=== PATIENT | female | born 1970 | race Caucasian/White ===

== ENCOUNTER → 2020-10-05 13:50 | Outpatient (BNVA) | payer OTHER, SELFPAY | PROVIDERS: PCP Nurse Practitioner Adult Health; Visit Provider Surgery | DX: Z76.89 Persons encountering health services in other specified circumstances (principal) ==

== ENCOUNTER → 2020-10-07 08:09 | Outpatient (BNVA) | payer OTHER, SELFPAY | PROVIDERS: PCP Nurse Practitioner Adult Health; Referring Provider Nurse Practitioner Adult Health; Visit Provider Surgery | DX: Z76.89 Persons encountering health services in other specified circumstances (principal) ==

== ENCOUNTER 2020-10-14 08:00 | Outpatient (REF) | payer OTHER, SELFPAY ==
[2020-10-15 15:01] LABS: H Pylori Breath Test NOT DETECTED (NOT DETECTED)
== END 2020-10-14 08:01 | disposition home or self-care (01) ==
LOC: HO.LAB 08:00
PROVIDERS: Visit Provider Physician Assistant
DX: E66.01 Morbid (severe) obesity due to excess calories (principal); R73.03 Prediabetes
CPT/HCPCS: 83013

== ENCOUNTER → 2020-10-14 08:43 | Outpatient (BNVA) | payer OTHER, SELFPAY | PROVIDERS: PCP Nurse Practitioner Adult Health; Visit Provider Physician Assistant | DX: Z76.89 Persons encountering health services in other specified circumstances (principal) ==

== ENCOUNTER 2020-10-17 08:56 | Outpatient (REF) | payer OTHER, SELFPAY ==
--- NOTE | 2020-10-17 09:21 | ECG_ITS ---
Test Reason : MORBIDLY OBESE Blood Pressure : / mmHG Vent. Rate : 079 BPM Atrial Rate : 079 BPM P-R Int : 108 ms QRS Dur : 084 ms QT Int : 396 ms P-R-T Axes : -19 007 010 degrees QTc Int : 454 ms Sinus rhythm with short OR Nonspecific ST abnormality Inferior leads Abnormal ECG No previous ECGs available Referred By: Hai Paul Electronically Signed By:MIMI OBREGON MD
--- NOTE | 2020-10-17 09:33 | XR_ITS ---
EXAMINATION: XR CHEST CLINICAL INFORMATION: Morbid obesity due to excessive calories. COMPARISON: None TECHNIQUE: 2 views of the chest were obtained. FINDINGS: No significant abnormality is noted involving the heart, lungs, mediastinum, bony thorax or soft tissues. XR/XR chest 2V IMPRESSION: Unremarkable chest examination.
[2020-10-17 10:28] LABS: MANUAL DIFF FLAG NO
[2020-10-17 10:44] LABS: Basophils Percent Auto 0.4 % (0-2); Eosinophils Percent Auto 0.9 % (0-4); Hematocrit 40.7 % (37-47); Hemoglobin 13.1 g/dl (12.0-16.0); Imm Gran Abs Auto 0.01 X10*3/uL (0.00-0.03); Imm Gran Pct Auto 0.2 % (0.0-0.4); Lymphocytes Absolute Auto 1.3 X10*3/uL (1.2-4.9); Lymphocytes Percent Auto 27.9 % (20-40); Mean Corpuscular HGB Conc 32.2 g/dl (31.0-35.0); Mean Corpuscular Hemoglobin 27.3 pg (27.0-33.0); Mean Corpuscular Volume 84.8 fL (80-98); Mean Platelet Volume 11.1 fL (9.4-12.3); Monocytes Absolute Auto 0.3 X10*3/uL (0.1-1.2); Monocytes Percent Auto 7.4 % (2-11); Neutrophils Absolute Auto 2.9 X10*3/uL (2.0-8.3); Neutrophils Percent Auto 63.2 % (45-73); Platelet Count 298 X10*3/uL (160-400); Red Cell Distribution Width 13.2 % (11.0-16.0); White Blood Count 4.6 X10*3/uL (4.8-10.8)
[2020-10-17 10:55] LABS: Estimated Average Glucose 111 mg/dL; Hemoglobin A1c % 5.5 %
[2020-10-17 11:09] LABS: Alanine Aminotransferase 22 U/L (0-31); Albumin Level 4.1 g/dL (3.5-5.0); Alkaline Phosphatase 43 U/L (39-117); Anion Gap 15 (12-20); Aspartate Amino Transferase 18 U/L (5-31); Bilirubin Total 0.4 mg/dL (0.0-1.0); Blood Urea Nitrogen 13 mg/dL (9-16); C Reactive Protein 0.19 mg/dL (< or = 0.50); Calcium 9.1 mg/dL (8.4-10.2); Carbon Dioxide 21 mmol/L (22-29); Chloride 106 mmol/L (96-108); Cholesterol 140 mg/dL; Estimated Glomerular Filt Rate > 60; Glucose Random 102 mg/dL (60-115); HDL Cholesterol 45 mg/dL; LDL Cholesterol Calculated 84 mg/dl; Potassium 3.8 mmol/l (3.3-5.1); Sodium 138 mmol/L (135-145); Total Protein 7.1 g/dL (6.5-8.0); Triglycerides 56 mg/dL
[2020-10-17 11:16] LABS: Ferritin 55 ng/mL (10-250); TSH reflex Free T4 1.37 mIU/mL (0.32-4.0); Vitamin D 25-OH Total 22.9 ng/mL (>30)
[2020-10-17 11:32] LABS: Folate 15.9 ng/mL (> or = 4.0); Vitamin B12 691 pg/mL (200-900)
[2020-10-18 15:07] LABS: Calcium (PTHI) 9.2 mg/dL (8.6-10.2); PTHI 36 pg/mL (14-64)
[2020-10-18 23:17] LABS: Insulin Level Total 12.9 uIU/mL
[2020-10-21 18:01] LABS: Zinc 75 mcg/dL (60-130)
[2020-10-23 12:57] LABS: Vitamin B1 <6 nmol/L (8-30)
[2020-10-24 20:09] LABS: Vitamin A 28 mcg/dL (38-98)
== END 2020-10-17 08:57 | disposition home or self-care (01) ==
LOC: HO.LAB 08:56
PROVIDERS: PCP Nurse Practitioner Adult Health; Visit Provider Surgery
DX: E66.01 Morbid (severe) obesity due to excess calories (principal); R73.03 Prediabetes
CPT/HCPCS: 36415; 71046; 80053; 80061; 82306; 82607; 82728; 82746; 83036; 83525; 83970; 84425; 84443; 84590; 84630; 85025; 86140; 93005

== ENCOUNTER → 2020-10-31 08:01 | Outpatient (BNVA) | payer OTHER, SELFPAY | PROVIDERS: PCP Nurse Practitioner Adult Health; Referring Provider Nurse Practitioner Adult Health; Visit Provider Surgery | DX: Z76.89 Persons encountering health services in other specified circumstances (principal) ==

== ENCOUNTER 2020-11-03 07:58 | Outpatient (REF) | payer OTHER, SELFPAY ==
--- NOTE | 2020-11-03 08:03 | FL_ITS ---
EXAMINATION: UPPER GI AIR-CONTRAST STUDY CLINICAL INFORMATION: [id number] obesity. COMPARISON: None TECHNIQUE: Routine upper GI air-contrast study was performed in upright and lying position. FINDINGS: Following oral administration of thick barium and effervescent granules, there is normal propagation bolus from the oral cavity through the pharynx, esophagus into stomach without any evidence of obstruction, narrowing, or stricture. On placing patient supine and prone, no gastroesophageal reflux or hiatal hernia seen. There is barium fragmentation and pooling in the antrum and the pylorus suggestive of increased acidity. Otherwise the mucosal pattern of the rest of the stomach and the duodenum is normal. The course, caliber, and peristalsis of the stomach, duodenum bulb, and C-loop is normal. FLUOROSCOPY TIME: 1.8 minutes IMAGES: 44 DOSE AREA PRODUCT: 51.108 uGy-m2 (microgray-meter squared) FL/FL upper GI series IMPRESSION: Suspect increased acidity. Otherwise unremarkable upper GI air-contrast study.
--- NOTE | 2020-11-03 08:07 | US_ITS ---
EXAMINATION: US COMPLETE ABDOMEN WITH LIVER ELASTOGRAPHY CLINICAL INFORMATION: Obesity, GERD. COMPARISON: None. TECHNIQUE: Real-time imaging of the abdominal viscera. Noninvasive ultrasound liver fibrosis assessment is performed using Karrie ElastPQ point quantification shear wave elastography (pSWE) with a 5 MHz transducer. Multiple elastography samples are obtained. FINDINGS: PANCREAS: The head and the body the pancreas are homogeneous in echotexture. The tail is obscured by overlying gas. ABDOMINAL AORTA: The proximal, middle, and distal aortic segments are normal in caliber. INFERIOR VENA CAVA: Visualized portions are normal. LIVER: The liver demonstrates normal size, contour and increased echogenicity. No focal lesion or intrahepatic biliary duct dilatation. The right lobe measures 12.8 cm in length. The left lobe measures 8.6 cm in length. There is normal hepatopedal flow seen in the portal vein on Doppler exam. Shear wave elastography provides a median stiffness of 1.35 m/s (reference: normal median stiffness is 0.81 - 1.22 m/s). The IQR/median stiffness to assess sampling precision is 0.32 (reference: optimal IQR/median stiffness is under 0.3). GALLBLADDER: There are multiple echogenic gallstones without wall thickening. No pericholecystic fluid collection seen. COMMON BILE DUCT: Normal in caliber measuring 0.3 cm in diameter. RIGHT KIDNEY: Normal. No hydronephrosis. No renal calculi or focal parenchymal lesions. The kidney measures 10.6 cm in maximum dimension. LEFT KIDNEY: There is an extrarenal kidney pelvis noted. No hydronephrosis. No renal calculi or focal parenchymal lesions. The kidney measures 12.8 cm in maximum dimension. SPLEEN: Normal. The spleen measures 11.0 cm in maximum dimension. FREE FLUID: None. US/US abdomen comp w elastography IMPRESSION: 1. Hepatic steatosis without focal lesion. 2. Cholelithiasis without wall thickening. 3. Extrarenal left kidney pelvis. 4. Elastography: [id number] fibrosis, score F0-F1.
== END 2020-11-03 07:59 | disposition home or self-care (01) ==
LOC: HO.US 07:58
PROVIDERS: Visit Provider Surgery
DX: Z01.818 Encounter for other preprocedural examination (principal); K21.9 Gastro-esophageal reflux disease without esophagitis; E66.01 Morbid (severe) obesity due to excess calories; R73.03 Prediabetes
CPT/HCPCS: 74240; 76705; 76981

== ENCOUNTER → 2020-11-04 08:31 | Outpatient (REF) | payer OTHER, SELFPAY ==
--- NOTE | 2020-11-04 08:34 | CA_ITS ---
Transthoracic Echocardiogram Patient (Last, First, Middle): Joanne Bull, Gender: Female Date of : 1970 Age: 50 Procedure Date: 11/04/2020 Procedure Type: Transthoracic Echocardiogram Location: OP Height: 160.02 cm Weight: 127.01 kg BSA: 2.23 m2 Heart Rate: bpm BP: 128 / 80 mmHg Outdoor Fitness Trainer: Referring MD: Hai Paul MD Symptoms: E66.01 - Morbid (severe) obesity due to excess calories Study Quality: Fair, good on Apical views ECG Rhythm: Sinus Conclusions: - The left ventricular systolic function is normal. The visually estimated ejection fraction is between 65-70%. - No obvious valvular pathology seen on this study. Findings Left Ventricle Normal left ventricular cavity size. There is mildly increased left ventricular wall thickness. The left ventricular systolic function is normal. The visually estimated ejection fraction is between 65-70%. There is no evidence of regional wall motion abnormalities. Diastolic function is normal for age. Right Ventricle Normal right ventricular cavity size and systolic function. Atria The left atrium is mildly dilated. The right atrium is normal in size. Aortic Valve There is a normal trileaflet aortic valve. There is no aortic valve stenosis. There is no aortic valve regurgitation. Mitral Valve The mitral valve appears normal. There is no mitral valve regurgitation. There is no mitral valve stenosis. Pulmonic Valve The pulmonic valve was not well visualized. Tricuspid Valve Normal tricuspid valve structure. There is trace tricuspid valve regurgitation. The pulmonary artery systolic pressure is normal. Great Vessels The aortic annulus, sinuses of valsalva, and asc aorta are normal in size. Venous The inferior vena cava is normal in size and collapses greater than 50% with inspiration. Pericardium/Pleural There is no evidence of pericardial effusion. Prior Study Comparison No prior study available for comparison. Recommendations, Care & Conclusions No obvious valvular pathology seen on this study. Measurements 2D Linear Measurements IVSd: 1.33 0.6-0.9/0.6-1.0 cm LVIDd: 4.10 3.9-5.3/4.2-5.9 cm LVIDd Index: 1.84 2.4-3.2/2.2-3.1 cm/m2 LVIDs: 2.61 2.0-3.6 cm LVPWd: 1.34 0.7-1.1 cm Ao Root: 2.90 2.1-3.5 cm LA Diam: 3.80 2.7-3.8/3.0-4.0 cm LAIDs Index: 1.70 1.5-2.3 cm/m2 LV Mass: 251.02 67-162/88-224 g LV Mass Index: 112.57 43-95/49-115 g/m2 LVOT Diam: 2.20 3.0+(-)1.3 cm 2D Systolic Function EF 4C: 66.10 >55% EF 2C: 68.60 >55% EF BiP: 67.00 >55% Mitral Valve MV Pk E: 1.07 MV PK A: 0.94 MV Decel Time: 137.00 E/A: 1.10 E'Lateral: 13.00 E'Medial: 7.35 E/E' Med: 14.60 E/E' Lat: 8.20 Aortic Valve AoV Pk Dejuan: 1.75 AoV Mn Dejuan: 1.19 AoV VTI: 0.37 AoV Pk Grad: 12.00 Aov Mn Grad: 7.00 HARJINDER Cont.VTI: 3.34 LVOT LVOT Pk Dejuan: 1.35 LVOT Mn Dejuan: 0.99 LVOT VTI: 0.32 LVOT Pk Grad: 7.00 LVOT Mn Grad: 5.00 LVOT Diam: 2.20 LVOT Area: 3.80 Diastolic Function MV Pk E: 1.07 MV Pk A: 0.94 E/A: 1.10 E'Medial: 7.35 E/E' Med: 14.60 E' Laterial: 13.00 E/E' Lat: 8.20 Tricuspid Valve TR Pk Dejuan: 1.59 TR Pk Grad: 10.00 RA Press: 3.00 RVSP: 13.00 Great Vessels Aorta Ao Root-2D: 2.90 2.0-3.7 cm Ao Asc: 3.60 2.1-3.4 cm Pulmonary Valve PV Pk Dejuan: 1.06 Peak PV Grad: 4.00 Updated in Other Vendor System with Status of Final Siddharth Smith MD electronically signed on 11/05/2020 1:09:39 PM with status of Final
== END ==
LOC: HO.CARD 08:31
PROVIDERS: Visit Provider Surgery
DX: Z01.818 Encounter for other preprocedural examination (principal); I10 Essential (primary) hypertension; E66.01 Morbid (severe) obesity due to excess calories
CPT/HCPCS: 93306

== ENCOUNTER → 2020-11-15 08:19 | Outpatient (BNVA) | payer OTHER, SELFPAY | PROVIDERS: PCP Nurse Practitioner Adult Health; Visit Provider Dietitian, Registered | DX: Z76.89 Persons encountering health services in other specified circumstances (principal) ==

== ENCOUNTER → 2020-11-23 08:28 | Outpatient (BNVA) | payer OTHER, SELFPAY | PROVIDERS: PCP Nurse Practitioner Adult Health; Visit Provider Surgery | DX: Z76.89 Persons encountering health services in other specified circumstances (principal) ==

== ENCOUNTER → 2020-12-01 08:02 | Outpatient (BNVA) | payer OTHER, SELFPAY | PROVIDERS: PCP Nurse Practitioner Adult Health; Visit Provider Dietitian, Registered | DX: Z76.89 Persons encountering health services in other specified circumstances (principal) ==

== ENCOUNTER → 2020-12-08 09:03 | Outpatient (REF) | payer OTHER, SELFPAY ==
--- NOTE | 2020-12-08 09:08 | CA_ITS ---
Acquisition Time: 2020-12-08 10:17:55 Total Exercise Time: 00:06:36 Test Indications: Abnormal ECG Medications: Protocol: JULITA Max HR: 164 BPM 95% of Pred: 172 BPM Max BP: 162/070 mmHG Max Work Load: 7.8 METS Exercise stress t est using Julita protocol, total of 6 min 36 sec. METS 7.9, TAPHR up to 96 %. Pt tolerated well, denies any anginal sx. EKG without any arrhythmias. No ischemic changes seen during exercsie or in recovery. Normotensive response to exercise. Test reviewed with Dr. Ann. Referred By: Hai Paul Overread By: DORIS ANN MD
== END ==
LOC: HO.CARD 09:03
PROVIDERS: Visit Provider Surgery
DX: Z01.818 Encounter for other preprocedural examination (principal); I51.7 Cardiomegaly; I10 Essential (primary) hypertension; R06.02 Shortness of breath; R93.1 Abnormal findings on diagnostic imaging of heart and coronary circulation
CPT/HCPCS: 93017

== ENCOUNTER → 2020-12-09 08:11 | Outpatient (BNVA) | payer OTHER, SELFPAY | PROVIDERS: PCP Nurse Practitioner Adult Health; Visit Provider Surgery | DX: Z76.89 Persons encountering health services in other specified circumstances (principal) ==

== ENCOUNTER → 2020-12-16 13:55 | Outpatient (BNVA) | payer OTHER, SELFPAY | PROVIDERS: PCP Nurse Practitioner Adult Health; Visit Provider Physician Assistant ==

== ENCOUNTER 2020-12-20 06:00 | Inpatient (IN) | payer OTHER, SELFPAY ==
[2020-12-13 09:08] LABS: MANUAL DIFF FLAG NO
[2020-12-13 09:15] LABS: Basophils Percent Auto 0.5 % (0-2); Eosinophils Percent Auto 0.7 % (0-4); Hematocrit 40.6 % (37-47); Hemoglobin 13.1 g/dl (12.0-16.0); Imm Gran Abs Auto 0.01 X10*3/uL (0.00-0.03); Imm Gran Pct Auto 0.2 % (0.0-0.4); Lymphocytes Absolute Auto 1.2 X10*3/uL (1.2-4.9); Lymphocytes Percent Auto 20.6 % (20-40); Mean Corpuscular HGB Conc 32.3 g/dl (31.0-35.0); Mean Corpuscular Hemoglobin 27.9 pg (27.0-33.0); Mean Corpuscular Volume 86.4 fL (80-98); Mean Platelet Volume 11.7 fL (9.4-12.3); Monocytes Absolute Auto 0.4 X10*3/uL (0.1-1.2); Monocytes Percent Auto 6.6 % (2-11); Neutrophils Absolute Auto 4.2 X10*3/uL (2.0-8.3); Neutrophils Percent Auto 71.4 % (45-73); Platelet Count 275 X10*3/uL (160-400); Red Cell Distribution Width 13.8 % (11.0-16.0); White Blood Count 5.9 X10*3/uL (4.8-10.8)
[2020-12-13 09:22] LABS: INTERNATIONAL NORM RATIO 1.1 (0.9-1.1); Prothrombin Time 13.5 SEC (10.8-13.0)
[2020-12-13 09:25] LABS: Partial Thromboplastin Time 34.2 SEC (24.1-38.0)
[2020-12-13 09:41] LABS: Alanine Aminotransferase 21 U/L (0-31); Albumin Level 4.3 g/dL (3.5-5.0); Alkaline Phosphatase 44 U/L (39-117); Anion Gap 17 (12-20); Aspartate Amino Transferase 20 U/L (5-31); Bilirubin Total 0.4 mg/dL (0.0-1.0); Blood Urea Nitrogen 11 mg/dL (9-16); Calcium 9.3 mg/dL (8.4-10.2); Carbon Dioxide 23 mmol/L (22-29); Chloride 104 mmol/L (96-108); Cholesterol 128 mg/dL; Estimated Glomerular Filt Rate > 60; Glucose Random 83 mg/dL (60-115); HDL Cholesterol 43 mg/dL; LDL Cholesterol Calculated 74 mg/dl; Potassium 3.9 mmol/l (3.3-5.1); Sodium 140 mmol/L (135-145); Total Protein 7.2 g/dL (6.5-8.0); Triglycerides 55 mg/dL
[2020-12-13 09:46] LABS: Estimated Average Glucose 105 mg/dL; Hemoglobin A1c % 5.3 %
[2020-12-15 13:09] VITALS: BMI 45.7
--- NOTE | 2020-12-15 14:39 | P.CONAN_ITS ---
Documented by User: Keerthi Bartlett 12/15/20 14:44 HPI - Anesthesia Eval Consult details Narrative: 50yo F for Gastrectomy Sleeve PMFSH Past Medical History Medical History Asthma Degenerative joint disease GERD (gastroesophageal reflux disease) Morbid obesity Prediabetes Sleep apnea with use of continuous positive airway pressure (CPAP) Supraventricular tachycardia Family History Family History Mother Hypertension COPD (chronic obstructive pulmonary disease) Diverticulitis Father Heart attack Hypertension Diabetes Congestive cardiac failure COPD (chronic obstructive pulmonary disease) Sister No problems noted. Surgical History Surgical History No significant past surgical history Social History Social History Are you a primary care administrative tech to a significant other at home: No Do you presently have visiting nurse or other home services: No Alcohol intake: current Alcohol intake frequency: a few times a month Smoking Status: Never smoker Use of substances other than those prescribed or required for medical reasons: No Have you been hit, kicked, punched, or otherwise hurt by someone within the past year? If so, by whom?: No Advance Directives: No Advance Directives Information Provided: No Advance Directives on File: No Recently lost weight without trying: No Meds Allergies Allergy/AdvReac Type Severity Reaction Status Date / Time No Known Allergies Allergy Verified 12/15/20 13:03 Home Medications Medication Instructions Recorded Confirmed Type albuterol sulfate 90 mcg/actuation 2 puff INHALATION Q4-6H PRN 10/07/20 12/15/20 History aerosol inhaler calcium carbonate 200 mg calcium 200 mg PO BID 10/07/20 12/15/20 History (500 mg) chewable tablet cetirizine 10 mg capsule 10 mg PO DAILY 10/07/20 12/15/20 History ibuprofen 400 mg tablet 400 mg PO Q8H PRN 10/07/20 12/15/20 History montelukast 10 mg tablet 10 mg PO DAILY 10/07/20 12/15/20 History diphenhydramine HCl [Benadryl] 25 mg PO BEDTIME 12/15/20 12/15/20 History Exam Exam Date and Time: December 15, 2020 1439 Height,Weight and Vital Signs: Height 5 ft 3 in Weight 117.027 kg Pertinent Lab Results Pertinent Lab Results: Laboratory Tests 12/13/20 12/13/20 12/13/20 08:35 08:35 08:35 WBC 5.9 RBC 4.70 Hgb 13.1 Hct 40.6 MCV 86.4 MCH 27.9 MCHC 32.3 RDW 13.8 Plt Count 275 MPV 11.7 Immature Gran % (Auto) 0.2 Neut % (Auto) 71.4 Lymph % (Auto) 20.6 [place] % (Auto) 6.6 Eos % (Auto) 0.7 Baso % (Auto) 0.5 Lymph # (Auto) 1.2 [place] # (Auto) 0.4 Eos # (Auto) 0.0 Baso # (Auto) 0.0 Abs Immat Gran (auto) 0.01 Absolute Neuts (auto) 4.2 Absolute Nucleated RBC 0.000 Nucleated RBC % (auto) 0.0 PT 13.5 H INR 1.1 APTT 34.2 Sodium 140 Potassium 3.9 Chloride 104 Carbon Dioxide 23 Anion Gap 17 BUN 11 Creatinine 0.70 Estim Creat Clear Calc TNP Estimated GFR > 60 Random Glucose 83 Estimat Average Glucose Hemoglobin A1c % Total Insulin Calcium 9.3 Total Bilirubin 0.4 AST 20 ALT 21 Alkaline Phosphatase 44 C-Reactive Protein 0.30 Total Protein 7.2 Albumin 4.3 Triglycerides 55 Cholesterol 128 LDL Cholesterol, Calc 74 HDL Cholesterol 43 TSH 1.70 Blood Type Antibody Screen 12/13/20 12/13/20 12/13/20 08:35 08:35 08:35 WBC RBC Hgb Hct MCV MCH MCHC RDW Plt Count MPV Immature Gran % (Auto) Neut % (Auto) Lymph % (Auto) [place] % (Auto) Eos % (Auto) Baso % (Auto) Lymph # (Auto) [place] # (Auto) Eos # (Auto) Baso # (Auto) Abs Immat Gran (auto) Absolute Neuts (auto) Absolute Nucleated RBC Nucleated RBC % (auto) PT INR APTT Sodium Potassium Chloride Carbon Dioxide Anion Gap BUN Creatinine Estim Creat Clear Calc Estimated GFR Random Glucose Estimat Average Glucose 105 Hemoglobin A1c % 5.3 Total Insulin 4.0 Calcium Total Bilirubin AST ALT Alkaline Phosphatase C-Reactive Protein Total Protein Albumin Triglycerides Cholesterol LDL Cholesterol, Calc HDL Cholesterol TSH Blood Type A Positive Antibody Screen NEGATIVE Narrative Narrative: EKG 10/17/21 SR with short OR Nonspec ST abn Echo 11/04/20 Conclusions: - The left ventricular systolic function is normal. The visually estimated ejection fraction is between 65-70%. - No obvious valvular pathology seen on this study. Stress 12/08/20 Exercise stress t est using Addi protocol, total of 6 min 36 sec. METS 7.9, TAPHR up to 96 %. Pt tolerated well, denies any anginal sx. EKG without any arrhythmias. No ischemic changes seen during exercsie or in recovery. Normotensive response to exercise. Test reviewed with Dr. Ann. Assessment and Plan Assessment Anesthesia Assessment: Chart Reviewed Documented by User: Uriel Jenkins 12/20/20 10:03 [facility] Past Medical History Medical History Asthma Degenerative joint disease GERD (gastroesophageal reflux disease) Morbid obesity Prediabetes Sleep apnea with use of continuous positive airway pressure (CPAP) Supraventricular tachycardia Family History Family History Mother Hypertension COPD (chronic obstructive pulmonary disease) Diverticulitis Father Heart attack Hypertension Diabetes Congestive cardiac failure COPD (chronic obstructive pulmonary disease) Sister No problems noted. Surgical History Surgical History No significant past surgical history Social History Social History Are you a primary care administrative tech to a significant other at home: No Do you presently have visiting nurse or other home services: No Alcohol intake: current Alcohol intake frequency: a few times a month Smoking Status: Never smoker Use of substances other than those prescribed or required for medical reasons: No Have you been hit, kicked, punched, or otherwise hurt by someone within the past year? If so, by whom?: No Advance Directives: No Advance Directives Information Provided: No Advance Directives on File: No Recently lost weight without trying: No Meds Allergies Allergy/AdvReac Type Severity Reaction Status Date / Time No Known Allergies Allergy Verified 12/15/20 13:03 Home Medications Medication Instructions Recorded Confirmed Type albuterol sulfate 90 mcg/actuation 2 puff INHALATION Q4-6H PRN 10/07/20 12/15/20 History aerosol inhaler calcium carbonate 200 mg calcium 200 mg PO BID 10/07/20 12/15/20 History (500 mg) chewable tablet cetirizine 10 mg capsule 10 mg PO DAILY 10/07/20 12/15/20 History ibuprofen 400 mg tablet 400 mg PO Q8H PRN 10/07/20 12/15/20 History montelukast 10 mg tablet 10 mg PO DAILY 10/07/20 12/15/20 History diphenhydramine HCl [Benadryl] 25 mg PO BEDTIME 12/15/20 12/15/20 History Exam Airway Mallampati Class: III TM Dist: >3cm Neck ROM: Full Loose/Missing/Broken Teeth: Yes (Upper crown) Heart: [id number] Lungs: cta b/l Assessment and Plan Assessment Anesthesia Assessment: Anesthesia Plan Discussed, PAT Visit and Chart Reviewed Final Anesthetic Review NPO: Yes ASA Class: III Final Preanesthetic Review: No Changes in Pt Med Stat, Meds/Allgs Chart Reviewed, Consent Obtained/Reviewed and Anes Risks/Benef Reviewed Patient Risk: Intermediate Procedure Risk: Low Assessment/Block/Sedation in SS: Assess/Block/Sedation-SS Anesthetic Plan Anesthetic Plan: GA and Agree w/ Assess. and Plan Disposition: Standard PACU
--- NOTE | 2020-12-19 14:25 | MHC.SHP ---
Pre-Procedural Eval Section A The patient is an INPATIENT: Yes The History & Physical has been completed within 30 days and I have reviewed it.: Yes Section B Chief Complaint: obesity Details of Present Illness: Obesity Relevant Family History (Specify if Yes): No Relevant Social History: None Present Medications: see Short Stay Collaborative assessment Medical History: No relevant PMH History of Previous Operations: No relevant previous surgery Allergies: Allergies Allergy/AdvReac Type Severity Reaction Status Date / Time No Known Allergies Allergy Verified 12/15/20 13:03 Review of Systems Sugical H&P ROS: Negative: Constitution, Cardiovascular, Respiratory, Neurological, Psychiatric, Hem-Onc, Allergic/Immunologic, Gastrointestinal, Genitourinary, Musculoskeletal, Integumentary, Endocrine and Eyes/Ears/Nose/Throat Exam Surgical H&P Exam: Normal: HEENT, Normal: Heart, Normal: Lungs, Normal: Extremities, Normal: Abdomen, Normal: Skin and Normal: Neurological Plan Diagnosis/Plan: Unchanged I have reviewed the history and physical and performed a pertinent physical examination on my patient. No changes have occurred unless specified.
[2020-12-20] VITALS (16 sets, daily range): BP systolic 132–171; BP diastolic 78–99; PULSE 82–103; RESP 14–20; TEMP 36.2–37.4; O2SAT 95–100
[2020-12-20 08:01] LABS: UPreg QC Valid YES; Urine Pregnancy NEGATIVE (NEGATIVE)
[2020-12-20 08:14] LABS: COVID-19 Test Negative (Negative)
[2020-12-20] MEDS: Lactated Ringers 1,000 ML 100 ML IVCONT (08:30)
[2020-12-20] MEDS: Lactated Ringers 1,000 ML 999 ML IVCONT (08:30)
[2020-12-20] MEDS: ceFAZolin Sodium/Dextrose,Iso 2 GM/50 ML PIGGYBACK IV ×2 (08:30→16:04)
--- NOTE | 2020-12-20 12:24 | P.BOP_ITS ---
Brief Operative Note Date of Service: 12/20/20 Pre-op diagnosis: Morbid obesity and comorbidities Post-op diagnosis: same (diaphragmatic hernia and adhesions) Procedure: INITIAL PATIENT BMI ON PRESENTATION AT OUR OFFICE: 52.7 kg/m2 LAST BMI BEFORE SURGERY: 46.4 kg/m2 COMORBIDITIES: Sleep apnea on CPAP, prediabetes, GERD, asthma, DJD, liver steatosis, liver fibrosis, cholelithiasis, left ventricular hypertrophy The patient participated in an intensive weekly lifestyle intervention and exercise program during which the patient has lost between the initial office visit and the last preoperative visit 35.4lbs, or 11.9% of initial actual body weight. The patient met the BMI-criteria for bariatric surgery based on the BMI on initial presentation. The patient should not be penalized for achieving such weight loss because it is not sustainable long-term without surgical intervention and it was achieved in preparation for bariatric surgery under my direction and based on my published research ([email or web address] and [email or web address]) that a 10% preoperative weight loss improves long-term weight loss after surgery and reduces perioperative complications. Insurance carriers such as [facility] have endorsed my recommendations and have included in their policies criteria to include a 10% preoperative weight loss requirement. PROCEDURE: Esophago-gastroscopy, laparoscopic repair of incarcerated diaphragmatic hernia, laparoscopic lysis of adhesions, laparoscopic sleeve gastrectomy and laparoscopic gastropexy INDICATIONS: This is a 50 year-old female who was electively scheduled for laparoscopic, possibly open sleeve gastrectomy. The risks and complications of the procedure were discussed with the patient in advance, particularly the possibility of ; pulmonary embolism; staple line leak; bleeding; GERD; cardiac, pulmonary, or renal complications; as well as long-term problems such as insufficient weight loss, vitamin deficiency, strictures, or ulcers. The patient understood all the risks, and was in agreement to proceed with surgery. DESCRIPTION OF PROCEDURE: After informed consent was obtained from the patient, the patient was given preoperative antibiotics, and was transferred to the operating room. After successful induction of general anesthesia, pneumatic compressive devices were placed on both lower extremities. An upper endoscopy was performed next. The oropharynx and esophagus appeared to be within normal limits. There was a diaphragmatic hernia present which was not reported at the preoperative upper GI. The stomach was entered. Then after all fluid and air were suctioned and the stomach was fully decompressed, the scope was withdrawn and secured in the mid esophagus. The patient was then prepped and draped in the usual sterile manner, and abdominal access was established at the right upper quadrant with the Mario technique. A 12 mm blunt port was inserted, and the abdomen was insufflated with CO2 to a pressure of 15 mmHg. Under direct visualization, additional ports were placed, specifically two 5 mm Versi-step ports to the left upper quadrant, and a 5 mm Versi-Step port to the right upper quadrant. 1% lidocaine plan was used to infiltrate all port sites as well as all fascia defects. Using the EndoClose suture passer device, we placed a #1 Polysorb tie across the falciform ligament in order to retract it up against the abdominal wall and prevent injury of the ligament with our instruments during the procedure. Following that, the patient was placed in a steep reverse Trendelenburg positi on. An additional 5 mm port was placed to the right flank for the Mediflex retractor that was used to retract the left lobe of the liver. The gastro-esophageal fat pad was opened with the ultrasonic device (Thunderbeat, Olympus) and the anterior esophagus and hiatus were exposed. The angle of His was opened with the ultrasonic device the fundus of the stomach from any diaphragmatic and splenic attachments. I then opened the gastrocolic ligament between the transverse colon and the greater curvature of the stomach with the ultrasonic device to enter the lesser sac and facilitate the ligation of the short gastric vessels. I started at a mid-point along the greater curvature and using the Thunderbeat, all short gastric vessels were divided all the way to the angle of His until the left mayra was completely dissected at its entirety. I then divided the gastro-colic ligament distally to a distance of about 3-4 cm proximal to the esophagus. 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 Those were lysed completely with the ultrasonic device. Adhesiolysis took approximately 45 min to complete. There was an obvious significant-sized hiatal hernia. I continued dissecting along the hiatus toward the left mayra and the angle of His. I fully mobilized the fat pad that was incarcerated in the hernia. I then continued by dissecting even further into the posterior retro-esophageal space all the way to the angle of His. The right mayra was also dissected completely. I continued to mobilize the esophagus into the mediastinum circumferentially. Both vagal nerves were seen and preserved. At that point, I was able to have at least 3 to 5 cm of esophagus into the abdomen. After I completely mobilized the esophagus from both the left and right mayra and I had a good mobilization of the esophagus circumferentially, I closed the hernia defect with one interrupted #0 Surgidac suture using the Endo Stitch device, which was placed posterior to the esophagus. The stomach was then divided transversely with one Endo ESPERANZA-45 purple and four ESPERANZA-60 articulating orange loads using the Signature stapler and loads. Every effort was made that the gastric sleeve had a tubular shape and an even caliber throughout. Once the sleeve resection was completed, the staple line of the gastric sleeve was reinforced with Hemoclips. The resected stomach was retrieved without difficulty from the Mario port. A gastropexy was then performed in order to prevent postoperative GERD and partial gastric volvulus. Several interrupted 2.0 Surgidac sutures were placed between the sleeve's staple line and the previously divided greater omentum and gastro-colic ligament using the Endo-Stitch device. An upper endoscopy was performed. There was no narrowing at the GE junction. The scope was easily advanced all the way to the pylorus which was clearly visualized. There was no narrowing anywhere and the sleeve's caliber was even throughout. The sleeve's staple line was inspected and there was no evidence of ischemia, bleeding or dehiscence. At that point the gastroscope was withdrawn from the patient?s mouth while we were decompressing the bowel and the stomach from any remaining air. I looked into the lesser sac to see how the sleeve was situating and it was situating well. There was no bleeding from the staple line, spleen, or short gastric vessels. The Mediflex retractor was removed, and the undersurface of the liver was inspected and there was no bleeding. The patient was placed in supine position. I closed the fascial defect of the 12 mm port site with a figure of eight #1 Polysorb suture. Then 100 cc 0.25 % Marcaine plain with 10 mg of Dexamethasone were used to infiltrate the fascial closure as well as all skin incisions. At this point, the abdomen was deflated, all ports were removed under direct vision, and no bleeding was noted from any of the port sites. The skin incisions were irrigated with saline and were closed with 4-0 absorbable monofilament sutures. Steri-Strips and OpSites were used to cover all incisions. The patient was extubated and was transferred in stable condition to the recovery room for further care. I was present and performed all singh parts of the procedure. Ms. Hamm was the pediatric medical assistant. There were no residents to assist with this case. William Paul MD, PhD, FACS Surgeon: Hai Paul MD Anesthesia: GETA, local and other (TAP block) Phone Triage Specialist: Yue Hamm Estimated blood loss (mL): 10 IV fluids (mL): 2,500 Urine output (mL): 0 (No Bains to record) Pathology: other (Stomach) Condition: stable Disposition: PACU
[2020-12-20] MEDS: ondansetron HCL 4 MG/2 ML VIAL IVPUSH ×2 (12:26→22:52)
--- NOTE | 2020-12-20 12:27 | P.DS_ITS ---
DS: Providers Provider Date of Service: 12/21/20 Date of admission: 12/20/20 06:00 Primary care physician: Tracey Wilde NP DS: Medications Discharge Medications Home Medications: Home Medications Medication Instructions Recorded Confirmed albuterol sulfate 90 mcg/actuation 2 puff INHALATION Q4-6H PRN 10/07/20 12/15/20 aerosol inhaler calcium carbonate 200 mg calcium 200 mg PO BID 10/07/20 12/15/20 (500 mg) chewable tablet cetirizine 10 mg capsule 10 mg PO DAILY 10/07/20 12/15/20 ibuprofen 400 mg tablet 400 mg PO Q8H PRN 10/07/20 12/15/20 montelukast 10 mg tablet 10 mg PO DAILY 10/07/20 12/15/20 diphenhydramine HCl [Benadryl] 25 mg PO BEDTIME 12/15/20 12/15/20 Previous Rx's Medication Instructions Recorded cholecalciferol (vitamin D3) 125 125 mcg PO DAILY #30 cap 10/31/20 mcg (5,000 unit) capsule thiamine HCl (vitamin B1) 100 mg 100 mg PO DAILY #30 tab 10/31/20 tablet vitamin A 10,000 unit capsule 10,000 unit PO DAILY #30 cap 10/31/20 ondansetron HCl 4 mg tablet 4 mg PO Q6H PRN #30 tab 12/09/20 pantoprazole 40 mg tablet,delayed 40 mg PO DAILY #30 tab 12/09/20 release polyethylene glycol 3350 17 gram 17 g PO DAILY #14 ea 12/09/20 oral powder packet sucralfate 100 mg/mL oral 10 ml PO BID #420 ml 12/09/20 suspension DS: Summary Time Spent with Patient Time attestation: ADMITTING DIAGNOSIS: morbid obesity, hiatal hernia, GERD, DJD, YOHANNES, asthma DISCHARGE DIAGNOSIS: same, s/p laparoscopic sleeve gastrectomy and repair of hiatal hernia PAST SURGICAL HISTORY: none PROCEDURE: upper endoscopy, laparoscopic sleeve gastrectomy with gastropexy and repair of hiatal hernia DISCHARGE SUMMARY: History of Present Illness: The patient is a 50 year-old woman with a BMI of 50 kg/m2 and associated co- morbidities as described above. The patient had extensive work-up,lost 31 lbs preoperatively and was electively scheduled for laparoscopic, possible open sleeve gastrectomy and gastropexy. Risks and complications of the surgery were discussed with the patient in advance, particularly the possibility of , pulmonary embolism, anastomotic leak, bleeding, bowel injury, GERD, cardiac, renal or pulmonary complications. The patient understood all the risks and was in agreement with the surgical plan. Hospital Course: The patient underwent an uneventful laparoscopic sleeve gastrectomy with gastropexy and repair of hiatal hernia on the day of admission. Postoperatively, the patient was transferred to the surgical floor. The patient was on IV Acetaminophen and IV dilaudid for pain control. Patient was started on bariatric phase 1 diet POD #0. On postoperative day one, the patient was feeling well without nausea, vomiting, fevers, or tachycardia. The patient had some mild incisional pain. The abdomen was soft. On the morning of postoperative day one, the patient was continued on 1 ounce of water or ice every half hour. During the first day, the patient did fairly well, having some incisional pain, but able to ambulate adequately and to tolerate liquids well. Since the patient is doing well, we decided that the patient was ready to be discharged. The patient was given instructions to follow-up with me next week and to call my office for any fever over 101, persistent abdominal pain, nausea, vomiting, GERD, symptoms of DVT such as calf tenderness, or leg swelling, or pulmonary embolism such as chest pain or shortness of breath. The patient was also instructed to drink 40-60 ounces of liquids per day using the 1-ounce cups. The patient was given prescription for Tylenol for pain, Zofran prn for nausea, and pantoprazole and carafate. The patient was encouraged to ambulate and use the incentive spirometer. The patient was allowed to shower, but no baths, and encouraged to stay active at home. All of these instructions were given to the patient personally. All questions were answered and the patient understood all instructions, the instructions were also given to the patient in print. Total time spent providing and/or coordinating discharge services: Discharge coordination time: Greater than 30 minutes Physical Exam Vital Signs: Vital Signs: Last Vital Signs Temp 97.9 F 12/20/20 08:13 Pulse 93 12/20/20 08:13 Resp 18 12/20/20 08:13 BP 139/78 12/20/20 08:13 Pulse Ox 99 12/20/20 08:13 Body Mass Index 45.7 DS: Data Data Completed and Pending Pending studies at discharge: Pending at discharge 12/20/20 10:32 Surgical [PTH] Routine Labs on day of discharge: Laboratory Tests 12/13/20 12/13/20 12/13/20 08:35 08:35 08:35 WBC 5.9 RBC 4.70 Hgb 13.1 Hct 40.6 MCV 86.4 MCH 27.9 MCHC 32.3 RDW 13.8 Plt Count 275 MPV 11.7 Immature Gran % (Auto) 0.2 Neut % (Auto) 71.4 Lymph % (Auto) 20.6 [place] % (Auto) 6.6 Eos % (Auto) 0.7 Baso % (Auto) 0.5 Lymph # (Auto) 1.2 [place] # (Auto) 0.4 Eos # (Auto) 0.0 Baso # (Auto) 0.0 Abs Immat Gran (auto) 0.01 Absolute Neuts (auto) 4.2 Absolute Nucleated RBC 0.000 Nucleated RBC % (auto) 0.0 PT 13.5 H INR 1.1 APTT 34.2 Sodium 140 Potassium 3.9 Chloride 104 Carbon Dioxide 23 Anion Gap 17 BUN 11 Creatinine 0.70 Estim Creat Clear Calc TNP Estimated GFR > 60 Random Glucose 83 Estimat Average Glucose Hemoglobin A1c % Total Insulin Calcium 9.3 Total Bilirubin 0.4 AST 20 ALT 21 Alkaline Phosphatase 44 C-Reactive Protein 0.30 Total Protein 7.2 Albumin 4.3 Triglycerides 55 Cholesterol 128 LDL Cholesterol, Calc 74 HDL Cholesterol 43 TSH 1.70 Urine Test COVID-19 ([facility]) COVID-19 Clin Com Blood Type Antibody Screen 12/13/20 12/13/20 12/13/20 08:35 08:35 08:35 WBC RBC Hgb Hct MCV MCH MCHC RDW Plt Count MPV Immature Gran % (Auto) Neut % (Auto) Lymph % (Auto) [place] % (Auto) Eos % (Auto) Baso % (Auto) Lymph # (Auto) [place] # (Auto) Eos # (Auto) Baso # (Auto) Abs Immat Gran (auto) Absolute Neuts (auto) Absolute Nucleated RBC Nucleated RBC % (auto) PT INR APTT Sodium Potassium Chloride Carbon Dioxide Anion Gap BUN Creatinine Estim Creat Clear Calc Estimated GFR Random Glucose Estimat Average Glucose 105 Hemoglobin A1c % 5.3 Total Insulin 4.0 Calcium Total Bilirubin AST ALT Alkaline Phosphatase C-Reactive Protein Total Protein Albumin Triglycerides Cholesterol LDL Cholesterol, Calc HDL Cholesterol TSH Urine Test COVID-19 ([facility]) COVID-19 Clin Com Blood Type A Positive Antibody Screen NEGATIVE 12/20/20 12/20/20 07:35 07:35 WBC RBC Hgb Hct MCV MCH MCHC RDW Plt Count MPV Immature Gran % (Auto) Neut % (Auto) Lymph % (Auto) [place] % (Auto) Eos % (Auto) Baso % (Auto) Lymph # (Auto) [place] # (Auto) Eos # (Auto) Baso # (Auto) Abs Immat Gran (auto) Absolute Neuts (auto) Absolute Nucleated RBC Nucleated RBC % (auto) PT INR APTT Sodium Potassium Chloride Carbon Dioxide Anion Gap BUN Creatinine Estim Creat Clear Calc Estimated GFR Random Glucose Estimat Average Glucose Hemoglobin A1c % Total Insulin Calcium Total Bilirubin AST ALT Alkaline Phosphatase C-Reactive Protein Total Protein Albumin Triglycerides Cholesterol LDL Cholesterol, Calc HDL Cholesterol TSH Urine Test NEGATIVE COVID-19 (MAGGIE) Negative COVID-19 [employer] Com See Note Blood Type Antibody Screen Discharge Plan Discharge Anticipated Discharge Date/Time: 12/21/20 11:24 Patient Disposition: Home, Self-Care Referrals: Tracey Wilde NP [Primary Care Provider] - Discharge Medications: Continued diphenhydramine HCl [Benadryl] 25 mg Capsule 25 mg PO BEDTIME RF: 0 montelukast 10 mg tablet 10 mg PO DAILY RF: 0 albuterol sulfate 90 mcg/actuation HFA aerosol inhaler 2 puff inhalation Q4-6H PRN (Reason: Wheezing) RF: 0 Zyrtec 10 mg capsule 10 mg PO DAILY RF: 0 pantoprazole 40 mg tablet,delayed release (DR/EC) 40 mg PO DAILY Qty: 30 RF: 2 sucralfate 100 mg/mL suspension 10 ml PO BID Qty: 420 RF: 2 ondansetron HCl [Zofran] 4 mg tablet 4 mg PO Q6H PRN (Reason: nausea and vomiting) Qty: 30 RF: 0 Discontinued ibuprofen 400 mg tablet 400 mg PO Q8H PRN (Reason: Pain) RF: 0 calcium carbonate [Tums] 200 mg calcium (500 mg) tablet,chewable 200 mg PO BID RF: 0 vitamin A 10,000 unit capsule 10,000 unit PO DAILY Qty: 30 RF: 2 thiamine HCl (vitamin B1) 100 mg tablet 100 mg PO DAILY Qty: 30 RF: 2 cholecalciferol (vitamin D3) 125 mcg (5,000 unit) capsule 125 mcg PO DAILY Qty: 30 RF: 2 polyethylene glycol 3350 [Miralax] 17 gram powder in packet 17 g PO DAILY Qty: 14 RF: 0 Discharge Orders: Discharge Order (Routine); Ordered 12/21/20 Ordered By: Hai Paul Activity on Discharge: No heavy lifting Stand Alone Forms: Patient Portal Discharge page Activity Restrictions/Additional Instructions: No tub baths, sex or returning to work until discussed at first post op appointment. No exercise, alcohol, tobacco or illegal drug use. Continue to use incentive spirometer hourly while awake. Walk in home for 5- 10 minutes every 2 hours during the first week. Continue phase 1 diet today and start phase 2 diet tomorrow morning. Follow all instructions in the bariatric handbook and call with any questions. Visit Report Forms: Patient Portal Discharge page Care Plan Goals: weight loss Health Concerns: morbid obesity Plan of Treatment: see discharge instructions Discharge Date/Time: 12/21/20 11:16
--- NOTE | 2020-12-20 12:30 | P.PNGS_ITS ---
Subjective Subjective Date of Service: 12/21/20 Interval history: Patient has mild incisional pain. She was able to ambulate and use the incentive spirometer. Physical Exam Vital Signs: Vital Signs: Last Vital Signs Temp 97.9 F 12/20/20 08:13 Pulse 93 12/20/20 08:13 Resp 18 12/20/20 08:13 BP 139/78 12/20/20 08:13 Pulse Ox 99 12/20/20 08:13 Body Mass Index 45.7 GI: Inspection: Yes normal to inspection, Yes incision (healing well) and Yes obesity Extrem: Right lower extremity: normal to inspection (no calf tenderness) Left lower extremity: normal to inspection (no calf tenderness) Progress Note: A&P Assessment and plan (1) Morbid obesity: Status: Acute (2) Asthma: Status: Acute (3) GERD (gastroesophageal reflux disease): Status: Acute (4) Prediabetes: Status: Acute (5) Degenerative joint disease: Status: Acute (6) Sleep apnea with use of continuous positive airway pressure (CPAP): Status: Acute (7) Left ventricular hypertrophy: Status: Acute (8) Congenital intra-abdominal adhesions: Status: Acute (9) Steatosis, liver: Status: Acute (10) Liver fibrosis: Status: Acute (11) S/P laparoscopic sleeve gastrectomy: Status: Acute Assessment and Plan: 50 year old female was admitted 12/20/2020 with morbid obesity and comorbiditie s. Problem 1: s/p laparoscopic sleeve gastrectomy, diaphragmatic hernia repair, gastropexy and lysis of adhesions Status: Doing well Plan: Check am labs, If OK, will continue phase 1 bariatric diet and discharge later today. (12) S/P repair of paraesophageal hernia: Status: Acute (13) Diaphragmatic hernia: Status: Acute (14) Cholelithiasis: Status: Acute Fall Risk Details Current Medications: Current Medications Generic Name Dose Route Start Last Admin Trade Name Freq PRN Reason Stop Dose Admin Albuterol Sulfate 2.5 mg 12/20/20 07:41 Albuterol Sulfate (0.083%) 2.5 Mg/3 Ml Vial.Neb INHALE ONCE PRN Shortness of Breath/Wheezing Fentanyl 50 mcg 12/20/20 10:03 Fentanyl Citrate/Pf 100 Mcg/2 Ml Vial IVPUSH Q5M PRN Pain, Moderate (Pain Scale 4-6 Hydromorphone HCl 0.5 mg 12/20/20 10:03 Hydromorphone Hcl 0.5 Mg/0.5 Ml Syringe IVPUSH Q5M PRN Pain, Severe (Pain Scale 7-10) Lactated Ringer's 1,000 mls @ 100 mls/hr 12/20/20 07:45 12/20/20 08:30 Lr IVCONT 100 mls/hr .Q10H DEBORA Administration Promethazine HCl 12.5 mg/ 50.5 mls @ 202 mls/hr 12/20/20 10:03 Sodium Chloride IV ONCE PRN Nausea and Vomiting Ondansetron HCl 4 mg 12/20/20 10:03 12/20/20 12:26 Ondansetron Hcl 4 Mg/2 Ml Vial IVPUSH 4 mg ONCE PRN Administration Nausea and Vomiting Oxycodone HCl 10 mg 12/20/20 10:03 Oxycodone Hcl Immed Release 5 Mg Tablet PO ONCE PRN Pain, Mild (Pain Scale 1-3) Time Spent With Patient Time: Total time spent is greater than 50% in coordination of care (as documented) at patient's floor/unit and/or counseling patient: Time with patient: less than 15 minutes
[2020-12-20] MEDS: HYDROmorphone HCl 0.5 MG/0.5 ML SYRINGE IVPUSH (13:31)
[2020-12-20] MEDS: Famotidine/PF 20 MG/2 ML VIAL IVPUSH ×2 (16:01→20:32)
[2020-12-20] MEDS: 0.9 % Sodium Chloride Flush 3 ML SYRINGE IVFLUSH ×2 (16:01→22:53)
[2020-12-20] MEDS: Lactated Ringers 1,000 ML 125 ML IVCONT ×2 (16:03→22:55)
[2020-12-20 16:31] LABS: Blood Urea Nitrogen 6 mg/dL (9-16); Estimated Glomerular Filt Rate > 60; Glucose Random 165 mg/dL (60-115)
[2020-12-20 16:53] LABS: Hematocrit 42.5 % (37-47); Hemoglobin 13.2 g/dl (12.0-16.0)
[2020-12-20 16:56] LABS: Anion Gap 23 (12-20); Calcium 8.6 mg/dL (8.4-10.2); Carbon Dioxide 15 mmol/L (22-29); Chloride 107 mmol/L (96-108); Sodium 141 mmol/L (135-145)
[2020-12-20] MEDS: Metoclopramide HCl 10 MG/2 ML VIAL IVPUSH (20:38)
[2020-12-21 03:26] VITALS: BP 113/58; PULSE 94; RESP 18; TEMP 36.8; O2SAT 94
[2020-12-21 04:31] LABS: MANUAL DIFF FLAG NO
[2020-12-21 04:32] LABS: Basophils Percent Auto 0.2 % (0-2); Hematocrit 36.3 % (37-47); Hemoglobin 11.6 g/dl (12.0-16.0); Imm Gran Abs Auto 0.04 X10*3/uL (0.00-0.03); Imm Gran Pct Auto 0.3 % (0.0-0.4); Lymphocytes Absolute Auto 0.8 X10*3/uL (1.2-4.9); Lymphocytes Percent Auto 5.9 % (20-40); Mean Corpuscular Hemoglobin 27.8 pg (27.0-33.0); Mean Corpuscular Volume 86.8 fL (80-98); Monocytes Absolute Auto 0.7 X10*3/uL (0.1-1.2); Monocytes Percent Auto 5.3 % (2-11); Neutrophils Absolute Auto 11.5 X10*3/uL (2.0-8.3); Neutrophils Percent Auto 88.3 % (45-73); Platelet Count 302 X10*3/uL (160-400); Red Blood Count 4.18 X10*6/uL (4.20-5.50); Red Cell Distribution Width 13.7 % (11.0-16.0)
[2020-12-21 04:53] LABS: Anion Gap 15 (12-20); Blood Urea Nitrogen 5 mg/dL (9-16); Calcium 8.5 mg/dL (8.4-10.2); Carbon Dioxide 19 mmol/L (22-29); Chloride 107 mmol/L (96-108); Creatinine Clr Calc Pharmacy 123.2; Estimated Glomerular Filt Rate > 60; Glucose Random 111 mg/dL (60-115); Potassium 4.2 mmol/l (3.3-5.1); Sodium 137 mmol/L (135-145)
[2020-12-21] MEDS: Lactated Ringers 1,000 ML 125 ML IVCONT (06:25)
[2020-12-21] MEDS: ondansetron HCL 4 MG/2 ML VIAL IVPUSH (06:33)
[2020-12-21 08:00] VITALS: BP 122/64; PULSE 82; RESP 18; TEMP 37.3; O2SAT 95
[2020-12-21] MEDS: Famotidine/PF 20 MG/2 ML VIAL IVPUSH (08:53)
--- NOTE | 2020-12-21 09:00 | HO.POSTANES ---
Post Anesthesia Evaluation Post Anesthesia Evaluation Vital Signs: Vital Signs Temp Pulse Resp BP Pulse Ox 12/21/20 08:00 99.1 F 82 18 122/64 95 12/21/20 03:26 98.3 F 94 18 113/58 L 94 12/20/20 23:43 99.4 F 96 20 138/82 95 Anesthesia: General Endotracheal-GETA Mental Status: Awake Pain Control: Satisfactory Nausea/Vomiting: Mild (PONV yesterday. Resolved.) Hydration: Adequate Anesthesia-Related Issues: No Anes. Related Issues
--- NOTE | 2020-12-21 09:22 | MHC.CM.PN ---
dc plan home no servceis
== END 2020-12-21 11:16 | disposition home or self-care (01) | DRG 620 ==
LOC: HO.SSSA 12:27 → HO.S3 12:36
PROVIDERS: Nurse Practitioner; Physician Assistant; Admitting Provider Surgery; PCP Nurse Practitioner Adult Health; Visit Provider Surgery
PROC: 0DB64Z3 Excision of Stomach, Percutaneous Endoscopic Approach, Vertical (ICD-10-PCS; CPT 43845; principal; 2020-12-20 09:20)
DX: E66.01 Morbid (severe) obesity due to excess calories (principal); K44.0 Diaphragmatic hernia with obstruction, without gangrene; Z68.42 Body mass index [BMI] 45.0-49.9, adult; Z20.822 Contact with and (suspected) exposure to COVID-19; R73.03 Prediabetes; G47.30 Sleep apnea, unspecified; K21.9 Gastro-esophageal reflux disease without esophagitis; K76.0 Fatty (change of) liver, not elsewhere classified; I51.7 Cardiomegaly; K66.0 Peritoneal adhesions (postprocedural) (postinfection); Z99.89 Dependence on other enabling machines and devices; Z79.899 Other long term (current) drug therapy
CPT/HCPCS: 36415; 80048; 80053; 80061; 81025; 83036; 83525; 84443; 85014; 85018; 85025; 85610; 85730; 86140; 86850; 86900; 86901; 87635; 88307; 88342; 99024; A4649; J0131; J0690; J1100; J1170; J2250; J2405; J2765; J3010

== ENCOUNTER → 2020-12-28 08:33 | Outpatient (BNVA) | payer OTHER, SELFPAY | PROVIDERS: PCP Nurse Practitioner Adult Health; Visit Provider Surgery ==

== ENCOUNTER → 2021-01-25 08:08 | Outpatient (BNVA) | payer OTHER, SELFPAY | PROVIDERS: PCP Nurse Practitioner Adult Health; Visit Provider Surgery ==

== ENCOUNTER → 2021-02-27 08:07 | Outpatient (BNVA) | payer OTHER, SELFPAY | PROVIDERS: PCP Nurse Practitioner Adult Health; Visit Provider Surgery ==

== ENCOUNTER → 2021-03-17 08:09 | Outpatient (BNVA) | payer OTHER, SELFPAY | PROVIDERS: PCP Nurse Practitioner Adult Health; Visit Provider Surgery ==

== ENCOUNTER 2021-03-18 08:56 | Outpatient (REF) | payer OTHER, SELFPAY ==
[2021-03-18 10:42] LABS: MANUAL DIFF FLAG NO
[2021-03-18 10:48] LABS: Basophils Percent Auto 0.6 % (0-2); Eosinophils Absolute Auto 0.1 X10*3/uL (0.0-0.4); Hematocrit 38.7 % (37-47); Hemoglobin 12.2 g/dl (12.0-16.0); Imm Gran Abs Auto 0.01 X10*3/uL (0.00-0.03); Imm Gran Pct Auto 0.2 % (0.0-0.4); Lymphocytes Absolute Auto 1.5 X10*3/uL (1.2-4.9); Lymphocytes Percent Auto 29.6 % (20-40); Mean Corpuscular HGB Conc 31.5 g/dl (31.0-35.0); Mean Corpuscular Hemoglobin 27.2 pg (27.0-33.0); Mean Corpuscular Volume 86.2 fL (80-98); Mean Platelet Volume 11.8 fL (9.4-12.3); Monocytes Absolute Auto 0.4 X10*3/uL (0.1-1.2); Monocytes Percent Auto 8.7 % (2-11); Neutrophils Percent Auto 59.9 % (45-73); Platelet Count 243 X10*3/uL (160-400); Red Blood Count 4.49 X10*6/uL (4.20-5.50); Red Cell Distribution Width 14.2 % (11.0-16.0); White Blood Count 4.9 X10*3/uL (4.8-10.8)
[2021-03-18 10:54] LABS: INTERNATIONAL NORM RATIO 1.2 (0.9-1.1); Prothrombin Time 13.9 SEC (10.8-13.0)
[2021-03-18 10:57] LABS: Partial Thromboplastin Time 35.3 SEC (24.1-38.0)
[2021-03-18 11:52] LABS: Alanine Aminotransferase 19 U/L (0-31); Alkaline Phosphatase 48 U/L (39-117); Anion Gap 14 (12-20); Aspartate Amino Transferase 16 U/L (5-31); Bilirubin Total 0.9 mg/dL (0.0-1.0); Blood Urea Nitrogen 9 mg/dL (9-16); C Reactive Protein 0.12 mg/dL (< or = 0.50); Calcium 9.5 mg/dL (8.4-10.2); Carbon Dioxide 25 mmol/L (22-29); Chloride 106 mmol/L (96-108); Cholesterol 127 mg/dL; Estimated Glomerular Filt Rate > 60; Glucose Random 81 mg/dL (60-115); HDL Cholesterol 44 mg/dL; LDL Cholesterol Calculated 76 mg/dl; Potassium 4.5 mmol/L (3.3-5.1); Sodium 140 mmol/L (135-145); Total Protein 6.5 g/dL (6.5-8.0); Triglycerides 39 mg/dL
[2021-03-18 11:59] LABS: Estimated Average Glucose 94 mg/dL; Hemoglobin A1c % 4.9 %
[2021-03-18 12:14] LABS: Ferritin 36 ng/mL (10-250); TSH reflex Free T4 1.42 uIU/mL (0.32-4.0); Vitamin D 25-OH Total 37.4 ng/mL (>30)
[2021-03-20 07:57] LABS: Vitamin B12 556 pg/mL (200-900)
[2021-03-20 17:22] LABS: Insulin Level Total 2.2 uIU/mL
[2021-03-21 13:17] LABS: Calcium (PTHI) 9.3 mg/dL (8.6-10.2); PTHI 37 pg/mL (14-64)
[2021-03-21 16:26] LABS: Zinc 78 mcg/dL (60-130)
[2021-03-22 23:47] LABS: Vitamin A 19 mcg/dL (38-98)
[2021-03-24 13:07] LABS: Vitamin B1 22 nmol/L (8-30)
== END 2021-03-18 08:57 | disposition home or self-care (01) ==
LOC: HO.LAB 08:56
PROVIDERS: Visit Provider Surgery
DX: K80.20 Calculus of gallbladder without cholecystitis without obstruction (principal); K90.9 Intestinal malabsorption, unspecified; R73.03 Prediabetes
CPT/HCPCS: 36415; 80053; 80061; 82306; 82607; 82728; 83036; 83525; 83970; 84425; 84443; 84590; 84630; 85025; 85610; 85730; 86140

== ENCOUNTER 2021-03-23 06:06 | Day surgery (SDC) | payer OTHER, SELFPAY ==
[2021-03-20 12:01] VITALS: BMI 38.0
--- NOTE | 2021-03-22 20:52 | MHC.SHP ---
Pre-Procedural Eval Section A The patient is an INPATIENT: No The History & Physical has been completed within 30 days and I have reviewed it.: Yes Section B Chief Complaint: cholecystitis Details of Present Illness: Symptomatic cholelithiasis Relevant Family History (Specify if Yes): No Relevant Social History: None Present Medications: see Short Stay Collaborative assessment Medical History: No relevant PMH History of Previous Operations: No relevant previous surgery Allergies: Allergies Allergy/AdvReac Type Severity Reaction Status Date / Time No Known Allergies Allergy Verified 03/20/21 11:59 Review of Systems Sugical H&P ROS: Negative: Constitution, Cardiovascular, Respiratory, Neurological, Psychiatric, Hem-Onc, Allergic/Immunologic, Gastrointestinal, Genitourinary, Musculoskeletal, Integumentary, Endocrine and Eyes/Ears/Nose/Throat Exam Surgical H&P Exam: Normal: HEENT, Normal: Heart, Normal: Lungs, Normal: Extremities, Normal: Abdomen, Normal: Skin and Normal: Neurological Plan Diagnosis/Plan: Unchanged I have reviewed the history and physical and performed a pertinent physical examination on my patient. No changes have occurred unless specified.
[2021-03-23] VITALS (13 sets, daily range): BP systolic 131–178; BP diastolic 64–93; PULSE 71–98; RESP 14–20; TEMP 36.1–37.2; O2SAT 92–100; BMI 37.6
[2021-03-23 06:32] LABS: UPreg QC Valid YES; Urine Pregnancy NEGATIVE (NEGATIVE)
[2021-03-23] MEDS: Lactated Ringers 1,000 ML 100 ML IVCONT (06:50)
[2021-03-23 06:54] LABS: COVID-19 Test Negative (Negative); IDNOW Serial# 9DD0AD1C
--- NOTE | 2021-03-23 07:15 | P.CONAN_ITS ---
FORM[facility]LY [facility], LATER [facility] Active Problems Active Problems: All Active Problems (Updated 03/20/21 @ 12:00 by Vivian carbajal) Left ventricular hypertrophy (Acute) Congenital intra-abdominal adhesions (Acute) S/P laparoscopic sleeve gastrectomy (Acute) S/P repair of paraesophageal hernia (Acute) Diaphragmatic hernia (Acute) Intestinal malabsorption (Acute) Cholelithiasis (Acute) Liver fibrosis (Acute) Steatosis, liver (Acute) Sleep apnea with use of continuous positive airway pressure (CPAP) (Acute) Degenerative joint disease (Acute) Prediabetes (Acute) GERD (gastroesophageal reflux disease) (Acute) Asthma (Acute) Morbid obesity (Acute) Past Medical History Medical History Abnormal echocardiogram Asthma Cholelithiasis Degenerative joint disease GERD (gastroesophageal reflux disease) History of postoperative nausea Liver fibrosis Morbid obesity Prediabetes Seasonal allergies Sleep apnea with use of continuous positive airway pressure (CPAP) Steatosis, liver Supraventricular tachycardia Vitamin A deficiency Vitamin B1 deficiency Vitamin D deficiency Family History Family History Mother Hypertension COPD (chronic obstructive pulmonary disease) Diverticulitis Father Heart attack Hypertension Diabetes Congestive cardiac failure COPD (chronic obstructive pulmonary disease) Sister No problems noted. Surgical History Surgical History History of sleeve gastrectomy Social History Social History Alcohol intake: current Alcohol intake frequency: does not drink Smoking Status: Never smoker Use of substances other than those prescribed or required for medical reasons: No Have you been hit, kicked, punched, or otherwise hurt by someone within the past year? If so, by whom?: No Advance Directives: No Advance Directives Information Provided: No Advance Directives on File: No service: No Meds Allergies Allergy/AdvReac Type Severity Reaction Status Date / Time No Known Allergies Allergy Verified 03/23/21 07:11 Active Medications: Current Medications Generic Name Dose Route Start Last Admin Trade Name Freq PRN Reason Stop Dose Admin Lactated Ringer's 1,000 mls @ 100 mls/hr 03/22/21 21:00 03/23/21 06:50 Lr IVCONT 100 mls/hr .Q10H DEBORA Administration Home Medications Medication Instructions Recorded Confirmed Last Taken Type albuterol sulfate 90 mcg/actuation 2 puff INHALATION Q4-6H PRN 10/07/20 03/20/21 Unknown History aerosol inhaler cetirizine 10 mg capsule 10 mg PO DAILY PRN 10/07/20 03/20/21 Unknown History montelukast 10 mg tablet 10 mg PO DAILY 10/07/20 03/20/21 Unknown History diphenhydramine HCl [Benadryl] 25 mg PO BEDTIME 12/15/20 03/20/21 Unknown History Exam Exam Date and Time: March 23, 2021 0715 Height,Weight and Vital Signs: Height 5 ft 3 in Weight 96.434 kg Last Vital Signs Temp 97.9 F 03/23/21 06:19 Pulse 76 03/23/21 06:19 Resp 18 03/23/21 06:19 BP 134/64 03/23/21 06:19 Pulse Ox 100 03/23/21 06:19 Pertinent Lab Results Pertinent Lab Results: Laboratory Tests 03/18/21 03/23/21 03/23/21 09:20 06:06 06:10 Urine Test NEGATIVE COVID-19 (MAGGIE) Negative COVID-19 Clin Com See Note Blood Type A Positive Antibody Screen NEGATIVE Airway Mallampati Class: II TM Dist: >3cm Neck ROM: Full Loose/Missing/Broken Teeth: No Heart: RRR Lungs: CTA Assessment and Plan Assessment Anesthesia Assessment: Anesthesia Plan Discussed and Chart Reviewed Final Anesthetic Review NPO: Yes ASA Class: II Final Preanesthetic Review: Meds/Allgs Chart Reviewed, Consent Obtained/Reviewed and Anes Risks/Benef Reviewed Patient Risk: Low Procedure Risk: Intermediate Anesthetic Plan Anesthetic Plan: GA Disposition: Standard PACU
--- NOTE | 2021-03-23 07:24 | PC.NURSE ---
PATIENT STATES HISTORY OF PAC,S.
[2021-03-23] MEDS: Scopolamine 1.5 MG PATCH.TD.3 EAR-BEHIND (07:28)
--- NOTE | 2021-03-23 09:47 | P.BOP_ITS ---
Brief Operative Note Date of Service: 03/23/21 Pre-op diagnosis: Symptomatic cholelithiasis Post-op diagnosis: same (and abdominal adhesions) Procedure: PROCEDURE DATE: 03/23/2021 PREOPERATIVE DIAGNOSIS: Symptomatic cholelithiasis, mid epigastric and right upper quadrant abdominal pain POSTOPERATIVE DIAGNOSIS: Same as above and abdominal adhesons PROCEDURE: Laparoscopic cholecystectomy Surgeon: William Paul M.D.. Ph.D. Medical Records Field Technician: Hansel Anesthesia: General endotracheal anesthesia Estimated blood loss: Minimal FINDINGS AND PROCEDURE: OPERATIVE INDICATIONS: The patient is a 51 year old female known to me who underwent a laparoscopic sleeve gastrectomy. The patient had remarkable weight loss so far of 8olbs in 4 months postoperatively and had a completely uneventful recovery. The patient has known pre-existing cholelithi asis and was doing very well but has recently been complaining of persistent mid epigastric and right upper quadrant abdominal pain which is mostly postprandial. Based on this information I recommended laparoscopic cholecystectomy, upper endoscopy to evaluate the patient's symptoms. In addition to that the plan was also to examine the gastric bypass at the same time. Risks and complications of the surgery were discussed with the patient in advance particularly the possibility of conversion to an open surgery, bleeding, infection, obstruction, deep vein thrombosis or pulmonary embolism, bile leak or major bile duct injury that may require surgical intervention. The patient understood the risks and was in agreement with the plan. PROCEDURE: After informed consent was obtained by the patient, the patient was transferred to the Operating Room and was placed in the supine position. The patient was given preoperative antibiotics and after successful induction of general anesthesia, pneumatic compression devices were placed. The patient was then prepped and draped in the usual sterile manner and abdominal access was established with the Mario technique. The abdomen was insufflated with C02 to a pressure of 15 mmHg. A 5 mm Versi-step port was placed, slightly to the right and superior from the umbilicus. The 5 mm camera was introduced. We inspected the area where the port had been placed and there was no injury. The patient was then placed initially in a steep reverse Trendelenburg position and three additional ports were placed, specifically a 12 mm Versi-step port just to the right of the midline below the xiphoid process and two 5 mm Versi-step ports at the right upper quadrant and right flank. At that point the patient was placed in a steep reverse Trendelenburg position tilted to the left side. The gallbladder was retracted cephalad and laterally. There were adhesions between the omentum and the gallbladder wall as well as a large amount of fat around the gallbladder that were taken down. The gallbladder was also intrahepatic and that made the procedure more difficult. The peritoneal attachments of the gallbladder at the triangle of Calot posteriorly and anter iorly were taken down. The cystic duct and artery were both seen. They were completely dissected free, skeletonized all the way to the infundibulum of the gallbladder . In a similar fashion I also cleaned the liver bed just behind the cystic artery to make sure there was no additional structures in this area. Once we confirmed that both structures were entering into the gallbladder and there were no other structures in the area, they were both clipped with two clips proximally, one distally and were cut in-between. We then using the electrocautery we slowly took down the gallbladder from the liver bed. Small areas of bleeding from the liver parenchyma were controlled with the cautery. After the gallbladder was completely detached from the liver bed, it was placed in an EndoCatch bag and was removed without difficulty from the xiphoid port. I then inspected the clips at the cystic duct and artery and were both in place. There was no active bleeding from the liver bed. I thoroughly irrigated the right upper quadrant and we removed all fluid until clear. At that point the patient was placed in supine position, we deflated the abdomen and I removed all ports under direct vision and no bleeding was noted from any of the port sites. The fascia of the 12 mm port was closed using a #1 Polysorb suture. 100cc 0.25% Marcaine and 10 mg of Dexamethasone were used to infiltrate the fascial closure as well as all skin incisions. The wounds were irrigated with saline mixed with antibiotic solution and then the skin was closed with 4-0 Monocryl subcuticular sutures antibiotic-coated. Steri-strips and OpSites were used to cover all incisions. The patient extubated and was transferred in stable condition to the Recovery Room for further care. I was present and performed all steps of the procedure. Ms. Hamm was the first coat operator. There were no residents to assist with this case. William Paul M.D., Ph.D., F.A.C.S. Surgeon: Hai Paul MD Anesthesia: GETA, local and other (TAP block) Medical Records Field Technician: Yue Hamm Estimated blood loss (mL): 10 IV fluids (mL): 750 Urine output (mL): 0 (No Bains to record) Pathology: other (Gallbladder) Condition: stable Disposition: PACU
[2021-03-23] MEDS: ondansetron HCL 4 MG/2 ML VIAL IVPUSH (10:44)
[2021-03-23] MEDS: Metoclopramide HCl 10 MG/2 ML VIAL IVPUSH (11:42)
[2021-03-23] MEDS: Acetaminophen 325 MG TABLET 650 MG PO (12:13)
== END 2021-03-23 12:52 | disposition home or self-care (01) ==
LOC: HO.SSS 06:07
PROVIDERS: Anesthesiology; PCP Nurse Practitioner Adult Health; Visit Provider Surgery
PROC: 0FT44ZZ Resection of Gallbladder, Percutaneous Endoscopic Approach (ICD-10-PCS; CPT 47562; principal; 2021-03-23 07:30)
DX: K80.10 Calculus of gallbladder with chronic cholecystitis without obstruction (principal); K82.8 Other specified diseases of gallbladder; K74.00 Hepatic fibrosis, unspecified; K21.9 Gastro-esophageal reflux disease without esophagitis; R73.03 Prediabetes; J45.909 Unspecified asthma, uncomplicated; G47.33 Obstructive sleep apnea (adult) (pediatric); Z99.89 Dependence on other enabling machines and devices; Z79.899 Other long term (current) drug therapy; Z98.84 Bariatric surgery status; Z20.822 Contact with and (suspected) exposure to COVID-19
CPT/HCPCS: 47562; 36415; 81025; 86850; 86900; 86901; 87635; 88304; J0690; J1100; J1170; J1885; J2250; J2405; J2550; J2765; J3010

== ENCOUNTER → 2021-04-03 08:56 | Outpatient (BNVA) | payer OTHER, SELFPAY | PROVIDERS: PCP Nurse Practitioner Adult Health; Visit Provider Surgery ==

== ENCOUNTER → 2021-06-12 07:51 | Outpatient (BNVA) | payer OTHER, SELFPAY | PROVIDERS: PCP Nurse Practitioner Adult Health; Visit Provider Surgery ==

== ENCOUNTER 2022-10-05 08:36 | Outpatient (REF) | payer OTHER, SELFPAY ==
[2022-10-05 08:57] LABS: MANUAL DIFF FLAG NO
[2022-10-05 09:10] LABS: Basophils Percent Auto 0.7 % (0-2); Eosinophils Absolute Auto 0.1 X10*3/uL (0.0-0.4); Eosinophils Percent Auto 3.2 % (0-4); Hematocrit 38.3 % (37.0-47.0); Hemoglobin 12.3 g/dl (12.0-16.0); Lymphocytes Absolute Auto 1.2 X10*3/uL (1.2-4.9); Lymphocytes Percent Auto 28.7 % (20-40); Mean Corpuscular HGB Conc 32.1 g/dl (31.0-35.0); Mean Corpuscular Hemoglobin 27.4 pg (27.0-33.0); Mean Corpuscular Volume 85.3 fL (80.0-98.0); Mean Platelet Volume 10.3 fL (9.4-12.3); Monocytes Absolute Auto 0.6 X10*3/uL (0.1-1.2); Monocytes Percent Auto 14.9 % (2-11); Neutrophils Absolute Auto 2.1 x10*3/uL (2.0-8.3); Neutrophils Percent Auto 52.5 % (45-73); Platelet Count 250 X10*3/uL (160-400); Red Blood Count 4.49 X10*6/uL (4.20-5.50); Red Cell Distribution Width 13.4 % (11.0-16.0)
[2022-10-05 09:24] LABS: Estimated Average Glucose 103 mg/dL; Hemoglobin A1c % 5.2 %
[2022-10-05 09:34] LABS: Alanine Aminotransferase 16 U/L (0-31); Albumin Level 3.7 g/dL (3.5-5.0); Alkaline Phosphatase 61 U/L (39-117); Anion Gap 13 (12-20); Aspartate Amino Transferase 18 U/L (5-31); Bilirubin Total 0.6 mg/dL (0.0-1.0); Blood Urea Nitrogen 11 mg/dL (9-16); C Reactive Protein 0.64 mg/dL (< or = 0.50); Calcium 8.8 mg/dL (8.4-10.2); Carbon Dioxide 23 mmol/L (22-29); Chloride 106 mmol/L (96-108); Cholesterol 158 mg/dL; Estimated Glomerular Filt Rate > 60; Glucose Random 87 mg/dL (60-115); HDL Cholesterol 59 mg/dL; Iron 51 mcg/dL (30-160); LDL Cholesterol Calculated 91 mg/dl; Percent Iron Saturation 14 % (15-50); Potassium 4.2 mmol/L (3.3-5.1); Sodium 138 mmol/L (135-145); Total Iron Binding Capacity 370 mcg/dL (228-428); Total Protein 6.6 g/dL (6.5-8.0); Triglycerides 42 mg/dL; Unsaturated Iron Binding 319 ug/dL
[2022-10-05 10:06] LABS: Folate 6.9 ng/mL (> or = 4.0); Vitamin B12 504 pg/mL (200-900)
[2022-10-05 10:54] LABS: Ferritin 22 ng/mL (10-250); Insulin 4 uU/mL (2-29); TSH reflex Free T4 1.22 uIU/mL (0.32-4.0)
[2022-10-05 12:47] LABS: Vitamin D 25-OH Total 36.9 ng/mL (>30)
[2022-10-08 17:27] LABS: Calcium (PTHI) 9.2 mg/dL (8.6-10.4); PTHI 58 pg/mL (16-77)
[2022-10-10 06:21] LABS: Zinc 60 mcg/dL (60-130)
[2022-10-11 06:31] LABS: Vitamin B1 10 nmol/L (8-30)
[2022-10-11 15:21] LABS: Vitamin A 24 mcg/dL (38-98)
== END 2022-10-05 08:37 | disposition home or self-care (01) ==
LOC: HO.LAB 08:36
PROVIDERS: Visit Provider Physician Assistant Surgical
DX: E66.9 Obesity, unspecified (principal); Z98.84 Bariatric surgery status
CPT/HCPCS: 36415; 80053; 80061; 82306; 82607; 82728; 82746; 83036; 83525; 83540; 83970; 84425; 84443; 84590; 84630; 85025; 86140

== ENCOUNTER → 2022-10-31 12:34 | Outpatient (BNVA) | payer OTHER, SELFPAY | PROVIDERS: PCP Nurse Practitioner Adult Health; Visit Provider Counselor Mental Health | DX: F33.1 Major depressive disorder, recurrent, moderate (principal); F41.9 Anxiety disorder, unspecified; Z98.84 Bariatric surgery status | CPT/HCPCS: 90791 ==

== ENCOUNTER 2025-05-25 12:41 | Outpatient (AMB) | payer OTHER, SELFPAY ==
--- OUTSIDE RECORDS SUMMARY | 2024-01-02 05:45 | XMS_ITS ---
Author Organization [facility] Address [address] [place] [address] Care Team Providers Care Network Strategist Name Role Phone Solo Grover Primary Care Provider Unavailab Russel Alvarado Unavailable [phone] Rickey Martínez Unavailable [phone] Encounters Encounter Location Date Provider Diagnosis [facility] [address] [place] [address] 01/02/2024 Rickey Martínez Plan Of Treatment No Information Progress Notes * Joanne BULL LDOB: [birth year] (55 yo F)Acc No.[id number]:01/02/2024 Progress Notes Patient: Joanne JACOBS Provider: Elias Martínez MD :1970 A ge:53 Y S ex:Female Date:01/02/2024 Address:[address] [place] [address] [address], [facility] Pcp:Solo Grover Subjective: * Chief Complaints: * * Medical History: Objective: * Vitals: Assessment: Plan: * Treatment: * * Electronic signature of Solitario Martínez MD on 05/25/2025 at 01:32 PM EDT Sign off status: Pending * Provider: Elias Martínez MD Date: 01/02/2024 Generated for Printi ng/Faxing/eTransmitting on: 0 05/25/2025 01:32 PM EDT
--- NOTE | 2025-05-25 12:45 | A.OFFVIS_ITS ---
Intake Visit Reasons: OV PO LSG 12/20/20 Allergies No Known Allergies Allergy (Verified 05/25/25 12:48) PFSH Medical History History of postoperative nausea Seasonal allergies Cholelithiasis Liver fibrosis Steatosis, liver Abnormal echocardiogram Vitamin D deficiency Vitamin B1 deficiency Vitamin A deficiency Supraventricular tachycardia Sleep apnea with use of continuous positive airway pressure (CPAP) Degenerative joint disease Prediabetes GERD (gastroesophageal reflux disease) Asthma Morbid obesity Surgical History (Updated 05/25/25 @ 12:48 by DANIELLE Perdomo) Hx of colonoscopy Hx of cholecystectomy History of sleeve gastrectomy Family History Mother Hypertension COPD (chronic obstructive pulmonary disease) Diverticulitis Father Heart attack Hypertension Diabetes Congestive cardiac failure COPD (chronic obstructive pulmonary disease) Sister No problems noted. Social History Are you a primary palliative care specialist to a significant other at home: No Do you presently have visiting nurse or other home services: No Alcohol intake: former Comment: pt sleeping Patient Tobacco Use Status: Never used Tobacco service: No Coding
[2025-05-25 12:52] VITALS: BP 135/73; PULSE 77; TEMP 36.1; O2SAT 98; BMI 46.8
--- NOTE | 2025-05-25 12:54 | A.OFFVIS_ITS ---
VS Expanded 05/25/25 12:52 BP 135/73 Blood Pressure Location Lt brachial Blood Pressure Position Sitting Pulse 77 Temp 97 F Pulse Oximetry 98 Height 5 ft 3 in Weight 264 lb 3.2 oz BMI 46.8 Body Fat % 48.0 Body Fat Mass 126.8 Fat Free Mass 137.4 Visceral Fat Rating 17. Body Water % 37.0 Body Water Mass 97.6 Muscle Mass/Score 130.6 Basal Metabolic Rate/Score 1,948 Intake Visit Reasons: OV PO LSG 12/20/20 Allergies No Known Allergies Allergy (Verified 05/25/25 12:48) Medication List - Last Reconciled 05/25/25 by REBA Holcomb albuterol sulfate 90 mcg/actuation 2 puffs inhalation Q4-6H PRN black cohosh 200 mg PO DAILY cetirizine (Zyrtec) 10 mg PO DAILY PRN diphenhydramine HCl (Benadryl) 25 mg PO BEDTIME escitalopram oxalate mg PO escitalopram oxalate 5 mg PO DAILY evening primrose oil 500 mg PO TID glucosamine HCl 500 mg PO DAILY iron,carbonyl-vitamin C 65 mg iron- 125 mg (Vitron-C) 1 tab PO DAILY melatonin mg PO montelukast 10 mg PO DAILY HPI Comments Details: This?is a?55?yo F who is s/p LSG 12/20/2020. Weight gain of 57.6lbs since last OV Sep 2022. Reports watery diarrhea. Sometimes this goes along with nausea and vomiting, twice in the past 4 months. Gets some gas cramps; not necessarily pain. Almost daily. Has not cut out any food categories to see if this would help. Hopeful that nutrition changes will help. I'm always wanting to eat Present meal plan includes: breakfast- coffee or tea, ZP or Pure Protein bar in pieces (8-10am) lunch- fruit or vegetable and lunch meat (2 slices) and cheddar cheese 2oz dinner- 3-4oz protein (chicken, pork, steak or fish) with vegetable and potato or rice (small portion) Options for snacks: protein shake (half scoop), cottage cheese or French yogurt (with veg or berries if she wants), half a protein bar, string cheese. Exercise routine includes: [facility] Medical History History of postoperative nausea Seasonal allergies Cholelithiasis Liver fibrosis Steatosis, liver Abnormal echocardiogram Vitamin D deficiency Vitamin B1 deficiency Vitamin A deficiency Supraventricular tachycardia Sleep apnea with use of continuous positive airway pressure (CPAP) Degenerative joint disease Prediabetes GERD (gastroesophageal reflux disease) Asthma Morbid obesity Surgical History (Updated 05/25/25 @ 12:48 by DANIELLE Perdomo) Hx of colonoscopy Hx of cholecystectomy History of sleeve gastrectomy Family History (Updated 05/25/25 @ 12:51 by DANIELLE Perdomo) Mother Hypertension COPD (chronic obstructive pulmonary disease) Diverticulitis Father Heart attack Hypertension Diabetes Congestive cardiac failure COPD (chronic obstructive pulmonary disease) Bilateral traumatic amputation of feet Sister No problems noted. Social History Are you a primary personal care worker to a significant other at home: No Do you presently have visiting nurse or other home services: No Alcohol intake: former Comment: pt sleeping Patient Tobacco Use Status: Never used Tobacco service: No Physical Exam Vital Signs: Last Vital Signs Temp 97 F 05/25/25 12:52 Pulse 77 05/25/25 12:52 BP 135/73 05/25/25 12:52 Pulse Ox 98 05/25/25 12:52 BMI result Body Mass Index 46.8 Assessment & Plan Assessment & Plan (1) S/P laparoscopic sleeve gastrectomy: Code(s): Z98.84 - Bariatric surgery status Category: Medical (2) Morbid obesity: Code(s): E66.01 - Morbid (severe) obesity due to excess calories Category: Medical Plan Pt is interested in starting GLP1. Reviewed contraindications, discussed dosing. Discussed need for adequate protein intake while on GLP1s as well as frequent communication with our office. Pt will check in with me weekly and is aware that subsequent Rx will be dependent on frequent communication. Also gave [employer] emily download info. Medications: New tirzepatide (weight loss) (Zepbound) for 4 weeks 2.5 mg (0.5 mL) subcut QWEEK 2 mL 0RF
--- OUTSIDE RECORDS SUMMARY | 2025-05-25 13:32 | XMS_ITS | Data Portability ---
Author Organization [facility] Address [address] [place] [address] Care Team Providers Care Building Maintenance Custodian Name Role Phone GAYE GLASER Primary Care Provider Assessment No assessment recorded. Plan of Treatment Reminders Order Date Submit Date Provider Last Modified By Organization Details Last Modified Time Details Appointments None recorded. Lab rabies Ab titer, serum 2016 017 [email or web address] [facility], [address] [place], [address], 7 15:12:34 TSH, serum or plasma 2016 017 [facility], [address] [place] [address], [address], 7 21:01:39 CBC 2016 017 [facility], [address] [place] [address], [address], 7 20:10:57 CMP, serum or plasma 2016 017 [facility], [address] [place] [address], [address], 7 21:01:39 rabies Ab titer, serum 2014 015 [facility], [address] [place], [address], 5 08:31:03 CBC w/ auto diff 2014 015 [facility], [address] [place], [address], 5 10:58:06 TSH, serum or plasma 2014 015 [facility], [address] [place], [address], 5 12:32:05 lipid panel, serum 2014 015 [facility], [address] [place], [address], 5 12:32:06 pap, LB + reflex HR HPV 2013 014 [facility], [address] [place], [address], 4 12:20:27 CBC w/ auto diff 2013 014 [facility], [address] [place], [address], 4 11:33:20 lipid panel, serum 2013 014 [facility], [address] [place], [address], 4 12:08:09 CMP, serum or plasma 2013 014 [facility], [address] [place], [address], 4 12:08:06 CK (creatine kinase), total, serum 2013 014 [facility], [address] [place], [address], 4 12:08:08 thyroid stimulatin g hormone (TSH) 2012 013 [facility], [address] [place], [address], 3 19:54:49 vitamin B12 & folate 2012 013 [facility], [address] [place], [address], 3 19:54:49 CBC 2012 013 [facility], [address] [place], [address], 3 19:15:06 comprehens bill metabolic panel 2012 013 [facility], [address] [place], [address], 3 19:47:11 ESR 2012 013 [facility], [address] [place], [address], 3 20:39:30 iron 2012 013 [facility], [address] [place], [address], 3 19:47:10 HDL, direct 2012 013 [facility], [address] [place], [address], 3 19:47:12 cholestero l, total 2012 013 [facility], [address] [place], [address], 3 19:47:11 Referral bariatric medicine referral - 46 yr old with BMI of 50 wanting to get her weight under control 2016 017 [email or web address] Not available 7 05:01:20 Procedures None recorded. Surgeries None recorded. Imaging electrocar diogram 2014 015 [facility], [address], [place], [id number], 5 20:14:10 mammogram, screening - Last mammogram done on: 2014 015 [facility] [address] [facility] [place], [address], 5 16:52:50 mammogram, screening - Last mammogram done on:04/01/132013 014 [email or web address] [facility] ([facility]), [address] [facility] [place], [address], 5 14:55:13 Medication Orders Lexapro 10 mg tablet 2016 017 INTERFACE [facility], [address] [place], [address], 7 12:52:26 Patient TargetsNo targets recorded. Patient Instructions Encounter Date Encounter Id Patient Instructions Last Modified By Organization Details Last Modified Time 09/07/2015 [id number] When You Want to Lose Weight: Care Instructions Not available 09/07/2015 16:52:29 12/03/2016 [id number] learning about mood disorders [email or web address] Not available 12/03/2016 13:05:00 Reason for Referral Bariatric Medicine Referral for Body mass index 40+ - severely obese 46 yr old with BMI of 50 wanting to get her weight under control Referring Physician: Gaye Glaser, Family Medicine, Encounter Date: 12/03/2016 Results Created Date Observation Date Name Description Value Unit Range Abnormal Flag Note LastModifiedBy Organization Detail LastModifiedTime 09/07/20 15 09/07/2015 richard mggr am EKG normal normal Not Available [facility] [address], [place], [id number], 09/07/2015 14:36:24 07/24/20 13 07/24/2013 CBC WBC 7.3 10*9/ l 3.5-11 .0 normal Not Available [facility] [address] [facility] [place], [address], 07/24/2013 20:39:29 07/24/20 13 07/24/2013 CBC RBC 4.51 10*12 /l 3.60-4 .80 normal Not Available [facility] [address] [place], [address], 07/24/2013 20:39:29 07/24/20 13 07/24/2013 CBC HGB 13.0 g/dL 12.0-1 6.0 normal Not Available [facility] [address] [place], [address], 07/24/2013 20:39:29 07/24/20 13 07/24/2013 CBC HCT 39.4 % 36-48 normal Not Available [facility] [address] [place], [address], 07/24/2013 20:39:29 07/24/20 13 07/24/2013 CBC MCV 87.4 fL 79-98 normal Not Available [facility] [address] [place] [address], [address], 07/24/2013 20:39:29 07/24/20 13 07/24/2013 CBC MCH 28.8 pg 25.4-3 4.6 normal Not Available [facility] [address] [place], [address], 07/24/2013 20:39:29 07/24/20 13 07/24/2013 CBC MCHC 33.0 g/dL 30-36 normal Not Available [facility] [address] [place], [address], 07/24/2013 20:39:29 07/24/20 13 07/24/2013 CBC RDW 12.9 % 11.5-1 4.5 normal Not Available [facility] [address] [place], [address], 07/24/2013 20:39:29 07/24/20 13 07/24/2013 CBC plt 317 10*9/ l 150-40 0 normal Not Available [facility] [address] [place], [address], 07/24/2013 20:39:29 07/24/20 13 07/24/2013 CBC abs neut count 4.1 1.5-7. 5 normal cauti on: inter preta tion of anc resul ts witho ut inclu whit of the WBC diffe renti al resul ts may lead to aleshia eous diagn osis; for examp le [facility] ng myelo proli ferat bill, or lymph oprol ifera tive disor ders Not Available [facility] [address] [place], [address], 07/24/2013 20:39:29 07/24/20 13 07/24/2013 iron iron 53.0 ug/dL 50-212 normal Not Available [facility] [address] [place] [address], [address], 07/24/2013 19:54:50 07/24/20 13 07/24/2013 compr ehens bill metab olic panel BUN 12 mg/dL 7-25 normal Not Available [facility] [address] [place] [address], [address], 07/24/2013 19:54:50 07/24/20 13 07/24/2013 compr ehens bill metab olic panel Na 137 mmol/ L 136-14 5 normal Not Available [facility] [address] [place] [address], [address], 07/24/2013 19:54:50 07/24/20 13 07/24/2013 compr ehens bill metab olic panel K 4.00 mmol/ L 3.5-5. 1 normal Not Available [facility] [address] [place] [address], [address], 07/24/2013 19:54:50 07/24/20 13 07/24/2013 compr ehens bill metab olic panel cL 108 mmol/ L 98-107 high Not Available [facility] [address] [place] [address], [address], 07/24/2013 19:54:50 07/24/20 13 07/24/2013 compr ehens bill metab olic panel CO2 25.0 mmol/ L 21-31 normal Not Available [facility] [address] [place], [address], 07/24/2013 19:54:50 07/24/2007/24/2013 compr ehens bill metab olic panel glucose 107 mg/dL 70-105 high Not Available [facility] [address] [place], [address], 07/24/2013 19:54:50 07/24/2007/24/2013 compr ehens bill metab olic panel creatinine 0.67 mg/dL 0.5-1. 2 normal Not Available [facility] [address] [place], [address], 07/24/2013 19:54:50 07/24/2007/24/2013 compr ehens bill metab olic panel GFR > 60.00 normal GFR value : mL/mi n/1.7 3 squar e meter s * chron ic kidne y disea se IS defin ed less than 60 mL/mi n/1.7 3 squar e meter s. kidne y failu re IS less than 15 mL/mi n/1.7 3 squar e meter s Not Available [facility] [address] [place], [address], 07/24/2013 19:54:50 07/24/2007/24/2013 compr ehens bill metab olic panel calcium 9.2 mg/dL 8.6-10 .3 normal Not Available [facility] [address] [place], [address], 07/24/2013 19:54:50 07/24/2007/24/2013 compr ehens bill metab olic panel total protein 6.6 g/dL 6.4-8. 3 normal Not Available [facility] [address] [place] [address], [address], 07/24/2013 19:54:50 07/24/2007/24/2013 compr ehens bill metab olic panel albumin 4.0 g/dL 3.7-5. 3 normal Not Available [facility] [address] [place], [address], 07/24/2013 19:54:50 07/24/20 13 07/24/2013 compr ehens bill metab olic panel bilirubin tot 0.4 mg/dL 0.2-1. 0 normal Not Available [facility] [address] [place], [address], 07/24/2013 19:54:50 07/24/20 13 07/24/2013 compr ehens bill metab olic panel alk phos 40 IU/L 34-104 normal Not Available [facility] [address] [place], [address], 07/24/2013 19:54:50 07/24/20 13 07/24/2013 compr ehens bill metab olic panel AST(SGOT) 14 IU/L 13-39 normal Not Available [facility] [address] [place], [address], 07/24/2013 19:54:50 07/24/20 13 07/24/2013 compr ehens bill metab olic panel ALT (SGPT) 20 IU/L 7-52 normal Not Available [facility] [address] [place], [address], 07/24/2013 19:54:50 07/24/20 13 07/24/2013 compr ehens bill metab olic panel anion gap 8.0 mmol/ L 5-15 normal Not Available [facility] [address] [place], [address], 07/24/2013 19:54:50 07/24/20 13 07/24/2013 paty stero l, total chol 182 mg/dL 136-20 0 normal Not Available [facility] [address] [place], [address], 07/24/2013 19:54:56 07/24/20 13 07/24/2013 HDL, direc t HDL chol direct 59.0 mg/dL 23-92 normal risk level male femal e decre ased >45 mg/dL >55 mg/dL avera ge 45 mg/dL 55 mg/dL incre ased <45 mg/dL <55 mg/dL Not Available [facility] [address] [place], [address], 07/24/2013 19:54:56 07/24/20 13 07/24/2013 vitam in B12 & folat e folate, serum 23.5 NG/mL normal refer ence range s: geovanna l: > 5.9 NG/mL elmer minat e: 4.0 - 5.9 NG/mL defic ient: < 4.0 NG/mL Not Available [facility] [address] [place], [address], 07/24/2013 19:54:49 07/24/20 13 07/24/2013 vitam in B12 & folat e vitamin B12 289 pg/mL 180-91 4 normal geovanna l range 180-9 14 pg/mL indet ermin ate range 145-1 80 pg/mL defic ient range < 145 pg/mL Not Available [facility] [address] [place], [address], 07/24/2013 19:54:49 07/24/20 13 07/24/2013 thyro id stimu latin g hormo ne (TSH) TSH 2.73 uIU/m L 0.34-5 .6 normal these refer ence range s shoul d BE used for pregn ant femal es: 1st trime ster: 0.3 - 4.5 mIU/m L 2nd trime ster: 0.5 - 4.6 mIU/m L 3rd trime ster: 0.8 - 5.2 mIU/m L Not Available [facility] [address] [place], [address], 07/24/2013 19:54:49 07/24/2007/24/2013 ESR sed rate 17 mm/HR 0-20 normal Not Availab le [facility] [address] [place], [address], 07/24/2013 20:39:30 08/11/20 14 08/11/2014 pap, LB + refle x HR HPV Pap smear ----- ----- ----- ----- ----- ----- ----- ----- ----- ----- ----- ----- ----- ----- ----- ----- ----- ----- -- PATIE NT: RUST Jose Alejandro COFFMAN 927 LOC: DO U #: [id number] AGE/S X: 44/F ROOM: RE08/[address]: Lopes RN,FLOOR LAYER APPRENTICE : 03/10 BED: DIS: STATU S: DEP CLI PROCE DURE/ OPERA TION PERFO RMED: N/A SPEC #: [id number] RECD: 08/11-1 956 STATU S: SOUT REQ #: [id number] BRODY: 08/11-U NK SUBM DR: Lopes RN,FLOOR LAYER APPRENTICE ENTER ED: 08/11-1 958 SP TYPE: PAP Smear OT DR: HERNANDEZ Cadena:Kamila martinsrv ix (Cerv ix) ----- ----- ----- ----- ----- ----- ----- ----- ----- ----- ----- ----- ----- ----- ----- ----- ----- ----- -- ----- ----- ----- ----- ----- ----- ----- ----- ----- ----- ----- ----- ----- ----- ----- ----- ----- ----- -- THIN PREP PAP SMEAR REPOR T Madi Kan acy: Satis facto marcelo for Evalu ation Categ oriza tion: Quinn khan for Intra epith elial Lesio n or Alex Kennedy nts: CYTOL YSIS IS PRESE NT Criss d __ MELIDA FLOREZ ON 08/14 1218 ----- ----- ----- ----- ----- ----- ----- ----- ----- ----- ----- ----- ----- ----- ----- ----- ----- ----- -- Not Available [facility] [address] [place] [address], [address], 08/14/2014 12:20:27 09/18/20 14 09/18/2014 CBC w/ auto diff WBC 7.4 10*9/ l 3.5-11 .0 normal Not Available [facility] [address] [place] [address], [address], 09/18/2014 11:33:20 09/18/20 14 09/18/2014 CBC w/ auto diff RBC 4.57 10*12 /l 3.60-4 .80 normal Not Available [facility] [address] [place] [address], [address], 09/18/2014 11:33:20 09/18/20 14 09/18/2014 CBC w/ auto diff HGB 12.6 g/dL 12.0-1 6.0 normal Not Available [facility] [address] [place] [address], [address], 09/18/2014 11:33:20 09/18/20 14 09/18/2014 CBC w/ auto diff HCT 39.6 % 36-48 normal Not Available [facility] [address] [place] [address], [address], 09/18/2014 11:33:20 09/18/20 14 09/18/2014 CBC w/ auto diff MCV 86.7 fL 79-98 normal Not Available [facility] [address] [place], [address], 09/18/2014 11:33:20 09/18/20 14 09/18/2014 CBC w/ auto diff MCH 27.6 pg 25.4-3 4.6 normal Not Available [facility] [address] [place] [address], [address], 09/18/2014 11:33:20 09/18/20 14 09/18/2014 CBC w/ auto diff MCHC 31.8 g/dL 30-36 normal Not Available [facility] [address] [place] [address], [address], 09/18/2014 11:33:20 09/18/20 14 09/18/2014 CBC w/ auto diff RDW 12.5 % 11.5-1 4.5 normal Not Available [facility] [address] [place] [address], [address], 09/18/2014 11:33:20 09/18/20 14 09/18/2014 CBC w/ auto diff plt 273 10*9/ l 150-40 0 normal Not Available [facility] [address] [place] [address], [address], 09/18/2014 11:33:20 09/18/20 14 09/18/2014 CBC w/ auto diff abs neut count 4.7 1.5-7. 5 normal Cauti on: Inter preta tion of ANC resul ts witho ut inclu whit of the WBC diffe renti al resul ts may lead to aleshia eous diagn osis; for examp le carolyn ng myelo proli ferat bill, OR lymph oprol ifera tive disor ders Not Available [facility] [address] [place], [address], 09/18/2014 11:33:20 09/18/20 14 09/18/2014 CBC w/ auto diff abs lymph count 1.9 0.8-4. 8 normal Not Available [facility] [address] [place], [address], 09/18/2014 11:33:20 09/18/20 14 09/18/2014 CBC w/ auto diff abs mono count 0.6 0.4-1. 3 normal Not Available [facility] [address] [place] [address], [address], 09/18/2014 11:33:20 09/18/20 14 09/18/2014 CBC w/ auto diff abs eo count 0.1 0.0-0. 8 normal Not Available [facility] [address] [place], [address], 09/18/2014 11:33:20 09/18/20 14 09/18/2014 CBC w/ auto diff abs baso count 0.0 0.0-0. 6 normal Not Available [facility] [address] [place] [address], [address], 09/18/2014 11:33:20 09/18/20 14 09/18/2014 CBC w/ auto diff abs imm gran CT 0.0 0.0-0. 6 normal Not Available [facility] [address] [place] [address], [address], 09/18/2014 11:33:20 09/18/20 14 09/18/2014 CBC w/ auto diff neut% 63.7 % 35-66 normal Not Available [facility] [address] [place] [address], [address], 09/18/2014 11:33:20 09/18/20 14 09/18/2014 CBC w/ auto diff imm gran % 0.1 % 0-2.0 normal Not Available [facility] [address] [place] [address], [address], 09/18/2014 11:33:20 09/18/20 14 09/18/2014 CBC w/ auto diff lymph% 26.0 % 25-45 normal Not Available [facility] [address] [place] [address], [address], 09/18/2014 11:33:20 09/18/20 14 09/18/2014 CBC w/ auto diff mono% 8.7 % 0-13 normal Not Available [facility] [address] [place], [address], 09/18/2014 11:33:20 09/18/20 14 09/18/2014 CBC w/ auto diff eo% 1.1 % 0-8 normal Not Available [facility] [address] [place], [address], 09/18/2014 11:33:20 09/18/20 14 09/18/2014 CBC w/ auto diff ba% 0.4 % 0-1 normal Not Available [facility] [address] [place], [address], 09/18/2014 11:33:20 09/18/20 14 09/18/2014 CBC w/ auto diff RBC morph NORMAL normal Not Available [facility] [address] [place] [address], [address], 09/18/2014 11:33:20 09/18/20 14 09/18/2014 CMP, serum or plasm a BUN 10 mg/dL 6-20 normal Not Available [facility] [address] [place] [address], [address], 09/18/2014 12:08:06 09/18/20 14 09/18/2014 CMP, serum or plasm a Na 139 mmol/ L 136-14 5 normal Not Available [facility] [address] [place] [address], [address], 09/18/2014 12:08:06 09/18/20 14 09/18/2014 CMP, serum or plasm a K 3.8 mmol/ L 3.5-5. 1 normal Not Available [facility] [address] [place], [address], 09/18/2014 12:08:06 09/18/20 14 09/18/2014 CMP, serum or plasm a cL 105 mmol/ L 98-107 normal Not Available [facility] [address] [place] [address], [address], 09/18/2014 12:08:06 09/18/20 14 09/18/2014 CMP, serum or plasm a CO2 27.7 mmol/ L 22-29 normal Not Available [facility] [address] [place] [address], [address], 09/18/2014 12:08:06 09/18/20 14 09/18/2014 CMP, serum or plasm a glucose 95 mg/dL 70-106 normal Not Available [facility] [address] [place] [address], [address], 09/18/2014 12:08:06 09/18/20 14 09/18/2014 CMP, serum or plasm a creatinine 0.60 mg/dL 0.50-0 .90 normal Not Available [facility] [address] [place] [address], [address], 09/18/2014 12:08:06 09/18/20 14 09/18/2014 CMP, serum or plasm a GFR > 60.00 normal GFR VALUE : ml/mi n/1.7 3 squar e meter s * Chron ic Kidne y Disea se is defin ed as less than 60 ml/mi n/1.7 3 squar e meter s. Kidne y failu re is less than 15 ml/mi n/1.7 3 squar e meter s Not Available [facility] [address] [place] [address], [address], 09/18/2014 12:08:06 09/18/20 14 09/18/2014 CMP, serum or plasm a calcium 8.9 mg/dL 8.6-10 .3 normal Not Available [facility] [address] [place] [address], 716[address], 09/18/2014 12:08:06 09/18/20 14 09/18/2014 CMP, serum or plasm a total protein 6.2 g/dL 6.4-8. 3 low Not Available [facility] [address] [place] [address], [address], 09/18/2014 12:08:06 09/18/20 14 09/18/2014 CMP, serum or plasm a albumin 3.9 g/dL 3.5-5. 2 normal Not Available [facility] [address] [place] [address], [address]27, 09/18/2014 12:08:06 09/18/20 14 09/18/2014 CMP, serum or plasm a bilirubin tot 0.5 mg/dL 0.2-1. 2 normal Not Available [facility] [address] [place] [address], 054[address], 09/18/2014 12:08:06 09/18/20 14 09/18/2014 CMP, serum or plasm a alk phos 45 U/L 35-104 normal Not Available [facility] [address] [place] [address], [address], 09/18/2014 12:08:06 09/18/20 14 09/18/2014 CMP, serum or plasm a AST(SGOT) 16 U/L 5-32 normal Not Available [facility] [address] [place] [address], 329[address], 09/18/2014 12:08:06 09/18/20 14 09/18/2014 CMP, serum or plasm a ALT (SGPT) 17 U/L 5-33 normal Not Available [facility] [address] [place] [address], 632[address], 09/18/2014 12:08:06 09/18/20 14 09/18/2014 CMP, serum or plasm a anion gap 10.0 mmol/ L 10-20 normal Not Available [facility] [address] [place] [address], 49769, 09/18/2014 12:08:06 09/18/20 14 09/18/2014 CK (crea massimo kinas e), total , serum CK 63 U/L 20-180 normal Not Available [facility] [address] [place] [address], 28[address], 09/18/2014 12:08:07 09/18/20 14 09/18/2014 lipid panel , serum chol 169 mg/dL <200 normal Not Available [facility] [address] [place] [address], 097[address], 09/18/2014 12:08:09 09/18/20 14 09/18/2014 lipid panel , serum trig 59 mg/dL 30-150 normal REFER ENCE RANGE S: <150 mg/dl Geovanna l 150-1 99 mg/dl Borde rline High 200-4 99 mg/dl High >500 mg/dl Very High Not Available [facility] [address] [place] [address], [address], 09/18/2014 12:08:09 09/18/20 14 09/18/2014 lipid panel , serum HDL chol direct 63.4 mg/dL 40-60 high Major risk facto r for CHD: <40 mg/dL Negat bill risk facto r for CHD: >=60 mg/dL Not Available [facility] [address] [place] [address], 30458, 09/18/2014 12:08:09 09/18/20 14 09/18/2014 lipid panel , serum risk factor 2.67 normal RISK CHOL/ HDL CHOL/ HDL RATIO MALE FEMAL E 1/2 AVERA GE 3.43 3.27 AVERA GE 4.97 4.44 2 X AVERA GE 9.55 7.05 3 X AVERA GE 23.39 11.04 Not Available [facility] [address] [place] [address], 07195, 09/18/2014 12:08:09 09/18/20 14 09/18/2014 lipid panel , serum low density lip 93.8 mg/dL 84-165 normal Not Available [facility] [address] [place] [address], 43045, 09/18/2014 12:08:09 10/01/20 15 10/01/2015 CBC w/ auto diff WBC 6.9 10*9/ l 3.5-11 .0 normal Not Available [facility] [address] [place] [address], 75[address], 10/01/2015 10:58:06 10/01/20 15 10/01/2015 CBC w/ auto diff RBC 4.70 10*12 /l 3.60-4 .80 normal Not Available [facility] [address] [place], [address], 10/01/2015 10:58:06 10/01/20 15 10/01/2015 CBC w/ auto diff HGB 13.2 g/dL 12.0-1 6.0 normal Not Available [facility] [address] [place], [address], 10/01/2015 10:58:06 10/01/20 15 10/01/2015 CBC w/ auto diff HCT 39.9 % 36-48 normal Not Available [facility] [address] [place], [address], 10/01/2015 10:58:06 10/01/20 15 10/01/2015 CBC w/ auto diff MCV 84.9 fL 79-98 normal Not Available [facility] [address] [place], [address], 10/01/2015 10:58:06 10/01/20 15 10/01/2015 CBC w/ auto diff MCH 28.1 pg 25.4-3 4.6 normal Not Available [facility] [address] [place], [address], 10/01/2015 10:58:06 10/01/20 15 10/01/2015 CBC w/ auto diff MCHC 33.1 g/dL 30-36 normal Not Available [facility] [address] [place], [address], 10/01/2015 10:58:06 10/01/20 15 10/01/2015 CBC w/ auto diff RDW 13.0 % 11.5-1 4.5 normal Not Available [facility] [address] [place], [address], 10/01/2015 10:58:06 10/01/20 15 10/01/2015 CBC w/ auto diff plt 313 10*9/ l 150-40 0 normal Not Available [facility] [address] [place], [address], 10/01/2015 10:58:06 10/01/20 15 10/01/2015 CBC w/ auto diff abs neut count 4.5 1.5-7. 5 normal Cauti on: Inter preta tion of ANC resul ts witho ut inclu whit of the WBC diffe renti al resul ts may lead to aleshia eous diagn osis; for examp le carolyn ng myelo proli ferat bill, OR lymph oprol ifera tive disor ders Not Available [facility] [address] [place], [address], 10/01/2015 10:58:06 10/01/20 15 10/01/2015 CBC w/ auto diff abs lymph count 1.6 0.8-4. 8 normal Not Available [facility] [address] [place] [address], [address], 10/01/2015 10:58:06 10/01/20 15 10/01/2015 CBC w/ auto diff abs mono count 0.6 0.4-1. 3 normal Not Available [facility] [address] [place], [address], 10/01/2015 10:58:06 10/01/20 15 10/01/2015 CBC w/ auto diff abs eo count 0.1 0.0-0. 8 normal Not Available [facility] [address] [place], [address], 10/01/2015 10:58:06 10/01/20 15 10/01/2015 CBC w/ auto diff abs baso count 0.0 0.0-0. 6 normal Not Available [facility] [address] [place], [address], 10/01/2015 10:58:06 10/01/20 15 10/01/2015 CBC w/ auto diff abs imm gran CT 0.0 0.0-0. 6 normal Not Available [facility] [address] [place], [address], 10/01/2015 10:58:06 10/01/20 15 10/01/2015 CBC w/ auto diff neut% 65.7 % 35-66 normal Not Available [facility] [address] [place] [address], 80195, 10/01/2015 10:58:06 10/01/20 15 10/01/2015 CBC w/ auto diff imm gran % 0.1 % 0-2.0 normal Not Available [facility] [address] [place] [address], 30935, 10/01/2015 10:58:06 10/01/20 15 10/01/2015 CBC w/ auto diff lymph% 23.6 % 25-45 low Not Available [facility] [address] [place] [address], 03387, 10/01/2015 10:58:06 10/01/20 15 10/01/2015 CBC w/ auto diff mono% 9.2 % 0-13 normal Not Available [facility] [address] [place] [address], 735[address], 10/01/2015 10:58:06 10/01/20 15 10/01/2015 CBC w/ auto diff eo% 1.0 % 0-8 normal Not Available [facility] [address] [place] [address], 428[address], 10/01/2015 10:58:06 10/01/20 15 10/01/2015 CBC w/ auto diff ba% 0.4 % 0-1 normal Not Available [facility] [address] [place] [address], [address], 10/01/2015 10:58:06 10/01/20 15 10/01/2015 CBC w/ auto diff RBC morph NORMAL normal Not Available [facility] [address] [place] [address], [address], 10/01/2015 10:58:06 10/01/20 15 10/01/2015 TSH, serum or plasm a TSH 1.870 uIU/m L 0.27-4 .2 normal Not Available [facility] [address] [place] [address], 308[address], 10/01/2015 12:32:05 11/07/20 15 10/01/2015 lipid panel , serum chol 176 mg/dL <200 normal Not Available [facility] [address] [place], [address], 10/01/2015 12:32:05 10/01/20 15 10/01/2015 lipid panel , serum trig 49 mg/dL 30-150 normal REFER ENCE RANGE S: <150 mg/dl Geovanna l 150-1 99 mg/dl Borde rline High 200-4 99 mg/dl High >500 mg/dl Very High Not Available [facility] [address] [place], [address], 10/01/2015 12:32:05 10/01/20 15 10/01/2015 lipid panel , serum HDL chol direct 66.9 mg/dL 40-60 high Major risk facto r for CHD: <40 mg/dL Negat bill risk facto r for CHD: >=60 mg/dL Not Available [facility] [address] [place] [address], [address], 10/01/2015 12:32:05 10/01/20 15 10/01/2015 lipid panel , serum risk factor 2.63 normal RISK CHOL/ HDL CHOL/ HDL RATIO MALE FEMAL E 1/2 AVERA GE 3.43 3.27 AVERA GE 4.97 4.44 2 X AVERA GE 9.55 7.05 3 X AVERA GE 23.39 11.04 Not Available [facility] [address] [place] [address], [address], 10/01/2015 12:32:05 10/01/20 15 10/01/2015 lipid panel , serum low density lip 99.3 mg/dL 84-165 normal Not Available [facility] [address] [place], [address], 10/01/2015 12:32:05 10/01/20 15 10/20/2015 rabie s Ab titer , serum rabies Ab titer COMMEN T () normal 2.6 IU/mL Repor table range is 0.1 to 15.0 IU/mL LESS THAN 0.1 IU/mL : Below detec tion limit Ref: R15-0 [id number] -11 In human s, a resul t of 0.5 IU/mL or highe r is consi dered an accep table respo nse to christian hair vacci natio n accor ding to the World Healt h Organ izati on (WHO) guide lines ; see WHO and Advis ory Commi ttee on Immun izati on Pract ices docum ents for addit anastasia powers nce. Also, there is more infor delio n at www.v et.[facility] /sheldon es. (Note : the symbo l > means grea ter than and >/= means grea ter than or equal to ) Resul ts are confi denti al perso nal healt h infor matprateek n. All discl osure s must be in accor dance with HIPAA . Test perfo rmed by: [facility] at[facility]reeti Saturnino ttan/ [facility] [address] [facility] [address] [place] [address] Phone Christian hair Neutr alizi ng Antib teri Titra tion (RFFI T) resul t verif ied by: Lydia Fofana , Manag ing [facility] Bere[facility] s Baldemar sandoval , [place] Test Repor kevin by Bry [place] [facility], [address] [place], [place] Marga Amato M.D., Ph.D. , [facility] atori es , CLIA [id number] Not Available [facility] [address] [place], [address], 10/20/2015 05:18:21 12/03/19 17 12/03/2016 CBC WBC 6.6 10*9/ l 3.5-11 .0 normal Not Available [facility] [address] [place], [address], 12/03/2016 20:10:57 12/03/1912/03/2016 CBC RBC 4.52 10*12 /l 3.60-4 .80 normal Not Available [facility] [address] [place], [address], 12/03/2016 20:10:57 12/03/19 17 12/03/2016 CBC HGB 12.2 g/dL 12.0-1 6.0 normal Not Available [facility] [address] [place], [address], 12/03/2016 20:10:57 12/03/19 17 12/03/2016 CBC HCT 38.9 % 36-48 normal Not Available [facility] [address] [place], [address], 12/03/2016 20:10:57 12/03/19 17 12/03/2016 CBC MCV 86.1 fL 79-98 normal Not Available [facility] [address] [place] [address], [address], 12/03/2016 20:10:57 12/03/19 17 12/03/2016 CBC MCH 27.0 pg 25.4-3 4.6 normal Not Available [facility] [address] [place], [address], 12/03/2016 20:10:57 12/03/19 17 12/03/2016 CBC MCHC 31.4 g/dL 30-36 normal Not Available [facility] [address] [place], [address], 12/03/2016 20:10:57 12/03/19 17 12/03/2016 CBC RDW 12.9 % 11.5-1 4.5 normal Not Available [facility] [address] [place], [address], 12/03/2016 20:10:57 12/03/19 17 12/03/2016 CBC plt 337 10*9/ l 150-40 0 normal Not Available [facility] [address] [place], [address], 12/03/2016 20:10:57 12/03/19 17 12/03/2016 CBC abs neut count 3.6 1.5-7. 5 normal Cauti on: Inter preta tion of ANC resul ts witho ut inclu whit of the WBC diffe renti al resul ts may lead to aleshia eous diagn osis; for examp le carolyn ng myelo proli ferat bill, OR lymph oprol ifera tive disor ders Not Available [facility] [address] [place] [address], [address], 12/03/2016 20:10:57 12/03/19 17 12/03/2016 TSH, serum or plasm a TSH 3.980 uIU/m L 0.27-4 .2 normal Not Available [facility] [address] [place] [address], [address], 12/03/2016 21:01:39 12/03/19 17 12/03/2016 CMP, serum or plasm a BUN 15 mg/dL 6-20 normal Not Available [facility] [address] [place] [address], 125[address], 12/03/2016 21:01:39 12/03/19 17 12/03/2016 CMP, serum or plasm a Na 141 mmol/ L 136-14 5 normal Not Available [facility] [address] [place] [address], 19[address], 12/03/2016 21:01:39 12/03/19 17 12/03/2016 CMP, serum or plasm a K 3.8 mmol/ L 3.5-5. 1 normal Not Available [facility] [address] [place] [address], 935[address], 12/03/2016 21:01:39 12/03/19 17 12/03/2016 CMP, serum or plasm a cL 102 mmol/ L 98-107 normal Not Available [facility] [address] [place] [address], 9[address], 12/03/2016 21:01:39 12/03/19 17 12/03/2016 CMP, serum or plasm a CO2 23.9 mmol/ L 22-29 normal Not Available [facility] [address] [place] [address], 365[address], 12/03/2016 21:01:39 12/03/19 17 12/03/2016 CMP, serum or plasm a glucose 92 mg/dL 70-106 normal Not Available [facility] [address] [place], [place] [address], [address], 12/03/2016 21:01:39 12/03/19 17 12/03/2016 CMP, serum or plasm a creatinine 0.68 mg/dL 0.50-0 .90 normal Not Available [facility] [address] [place], [place] [address], [address], 12/03/2016 21:01:39 12/03/1912/03/2016 CMP, serum or plasm a GFR > 90.00 normal Not Available [facility] [address] [place], [place] [address], [address], 12/03/2016 21:01:39 12/03/19 17 12/03/2016 CMP, serum or plasm a calcium 8.8 mg/dL 8.6-10 .3 normal Not Available [facility] [address] [place], [place] [address], [address], 12/03/2016 21:01:39 12/03/1912/03/2016 CMP, serum or plasm a total protein 6.9 g/dL 6.4-8. 3 normal Not Available [facility] [address] [place], [place] [address], [address], 12/03/2016 21:01:39 12/03/19 17 12/03/2016 CMP, serum or plasm a albumin 4.1 g/dL 3.5-5. 2 normal Not Available [facility] [address] [place], [place] [address], [address], 12/03/2016 21:01:39 12/03/1912/03/2016 CMP, serum or plasm a globulin 2.8 gm/dL 2.0-3. 5 normal Not Available [facility] [address] [place], [place] [address], [address], 12/03/2016 21:01:39 12/03/19 17 12/03/2016 CMP, serum or plasm a alb/glob ratio 1.5 % 1.1-2. 5 normal Not Available [facility] [address] [place] [address], [address], 12/03/2016 21:01:39 12/03/19 17 12/03/2016 CMP, serum or plasm a bilirubin tot < 0.2 mg/dL 0.2-1. 2 low Not Available [facility] [address] [place] [address], 10[address], 12/03/2016 21:01:39 12/03/19 17 12/03/2016 CMP, serum or plasm a alk phos 46 U/L 35-104 normal Not Available [facility] [address] [place] [address], 17575, 12/03/2016 21:01:39 12/03/19 17 12/03/2016 CMP, serum or plasm a AST(SGOT) 16 U/L 5-32 normal Not Available [facility] [address] [place] [address], 827[address], 12/03/2016 21:01:39 12/03/19 17 12/03/2016 CMP, serum or plasm a ALT (SGPT) 19 U/L 5-33 normal Not Available [facility] [address] [place] [address], 889[address], 12/03/2016 21:01:39 12/03/19 17 12/03/2016 CMP, serum or plasm a anion gap 19.0 mmol/ L 10-20 normal Not Available [facility] [address] [place] [address], [address], 12/03/2016 21:01:39 12/03/19 17 01/02/2017 rabie s Ab titer , serum rabies Ab titer COMMEN T () normal 0.9 IU/mL Repor table range is 0.1 to 15.0 IU/mL LESS THAN 0.1 IU/mL : Below detec tion limit Ref: R17-0 [id number] -9 In human s, a resul t of 0.5 IU/mL or highe r is consi dered an accep table respo nse to christian s vacci natio n accor ding to the World Healt h Organ izati on (WHO) guide lines ; see WHO and Advis jamesy Commi ttee on Immun izati on Pract ices docum ents for addit anastasia powers kaz. Also, there is more infor matio n at www.v et.ks .edu /sheldon es. (Note : the symbo l > means grea ter than and >/= means grea ter than or equal to ) Resul ts are confi denti al perso nal healt h infor matio n. All discl osure s must be in accor dance with HIPAA . Test perfo rmed by: [facility] at[facility] Manha ttan/ [facility] [address] [facility] [place] [address] Phone Christian s Neutr alizi ng Antib teri Titra tion (RFFI T) resul t verif ied by: Lydia Fofana , Manag ing [facility] Christian s [employer] , [place] Test Repor kevin by Bry [place] [facility] Phong ls [facility], [address] [place], [place] Marga Amato M.D., Ph.D. , [facility] es , CLIA [id number] Not Available [facility] [address] [place] [address], ADINA Pickering, [address], 01/02/2017 19:36:19 11/09/20 15 11/09/2015 mammo gram, scree gena Locati on: [facility] DE[facility]T [address] [facility] RADIOL OGY [phone] [place]. [address] FAX: [phone] ___ NOEMÍ PALACIOS 1216-0 274 K[facility]ARA [id number] Maria Eugenia Hernandez NP F Other Provid er: ; [phone] [id number] [phone] SCREEN ING KIARA Breast Screen ing Bilate ral SCREEN ING MAMMOG DAREN REPORT PRESNOEMÍ AMADOR 1969 Leila Hernandez FLOOR LAYER APPRENTICE, FLOOR LAYER APPRENTICE SCREEN ING DIG [facility]IARA BILAT G0202+ EXAM: SCREEN ING DIG [facility]IARA BILAT G0202+ CLINIC AL INDICA TION: SCREEN ING COMPAR RUDDY: 04/01/20 13, 009 FINDIN GS: Exam was perfor med with the assist ance of CAD interp retati on. The breast s are almost entire ly fatty. There are no develo ping masses , suspic ious cluste rs of microc alcifi cation s or areas of heather ectura l distor tion. IMPRES WHIT: No signif icant interv al change . No eviden ce of malign georgie. Recomm end annual mammog raphic screen ing. BI-RAD S CODE: 1: Negati miguel [facility] DEPART MEMT [address] [place] [address] RADIOL OGY [phone] [place]. [address] FAX: [phone] ___ NOEMÍ PALACIOS 1216-0 274 K[facility]ARA [id number] Maria Eugenia Hernandez FLOOR LAYER APPRENTICE F Other Provid er: ; [phone] [id number] SCREEN ING KIARA Breast Screen ing Bilate ral SCREEN ING MAMMOG DAREN REPORT Electr onical ly Signed in Marie cribe By DANILO Still MD 1640 Maricarmen [place] MD Radiol ogist IATR 1647 27 0.17 cc: Other Provid er: ; Maria Eugenia Hernandez NP, Debo rah FLOOR LAYER APPRENTICE Nottle son,Rigoberto steven croew MD Distri buted to: Techno logist , RT RM //name // //add1 // //add2 // //add3 // Date Mailed :11/09 Author daksha still #: Ins. Group #: [id number] Ins. Group Name: [facility] Archie Neeraj Kishor chula Ins. Policy #: [id number] [facility] [address] [place] [address], [address], 12/03/2016 12:31:22 Result Notes None recorded. Problems Name Problem SNOMED Code Status Onset Date Resolution Date Notes Provider Name and Address Organization Details Recorded Time Obesity 838798948 Active Not Available [facility] 3 03:05:47 Dizzines s and giddines s 109557850 Active Haris-hull spect vestibul ar migraine s Not Available [facility] 3 03:05:47 Carpal tunnel syndrome 23830780 Active right wrist Not Available [facility] 3 03:05:47 Contact dermatit is 05617343 Active Not Available [facility] 3 03:05:47 Palpitat ions 16976146 Active resolved Not Available [facility] 3 03:05:47 Acute maxillar y sinusiti s 25905838 Completed 07/24/2013 Not Available [facility] 3 03:05:47 Alopecia 42794688 Active Not Available [facility] 3 03:05:47 Allergic rhinitis 64983284 Active seasonal allergie s Not Available [facility] 3 03:05:47 Asthma 536542623 Active Emerald Garcia NP null, [facility] 4 09:30:44 Malaise and fatigue 939248935 Completed 07/24/2013 Not Available Counts include 234 beds at the [facility] 3 03:05:47 Hypercho lesterol emia 54751804 Active Emerald Garcia FLOOR LAYER APPRENTICE null, [facility] 4 09:30:44 Morbid obesity 668227148 Active Emerald Garcia NP null, [facility] 5 16:52:29 Chest wall pain 523303056 Active Emerald Garcia NP null, [facility] 5 16:52:29 Body mass index 40+ - severely obese 031055613 Active 2016 Gaye Glaser MD [address] [place] [address], [phone] [facility] 7 12:36:13 Problem Notes None recorded. Procedures Surgical History Date Name Laterality Status Provider Name and Address Organization Details Recorded Time 12/03/19 17 PHQ-9 Patient Health Questionnaire completed Hollie Ratliff [facility] 12/03/2016 12:19:01 09/07/20 15 PHQ-9 Patient Health Questionnaire completed Chio Calvo MA [facility] 09/07/2015 14:03:19 08/11/20 14 PHQ-9 Patient Health Questionnaire completed Ady Esparza MA [facility] 08/11/2014 15:57:59 07/24/20 13 PHQ-9 Patient Health Questionnaire completed Hina Castro [facility] 07/24/2013 14:10:54 07/16/20 12 PHQ-9 Patient Health Questionnaire completed Lizbeth Linares MA [facility] 07/16/2012 09:30:31 06/21/20 11 PHQ-9 Patient Health Questionnaire completed Lizbeth Linares MA [facility] 06/21/2011 09:13:17 dental extraction completed Not Available [facility] 10/10/2011 06:32:15 Imaging Results None recorded. Procedure Notes None recorded. Medical Equipment None Reported. Allergies No known drug allergies Medications Name Sig Start Date Stop Date Status Note LastModified by Organization Details LastModified Time prednison e 10 mg tablet Take 4 tablet (40mg) by oral route once daily for three days, then 3 tablets (30mg) once daily for three days, then 2 tablets (20mg) once daily for three days, then 1 tablet (10 mg) once daily for three days. active Not Available Not Available No t Available azithromy trip 250 mg tablet Take 2 tablets (500 mg) by oral route once daily for 1 day then 1 tablet (250 mg) by oral route once daily for 4 days active Not Available Not Available No t Available Protopic 0.1 % topical ointment active Not Available Not Available Not Available Amoxil 500 mg capsule Take 1 capsule every 8 hours by oral route for 10 days. 01/27 completed Not Available Not Available Not Available desonide 0.05 % topical ointment Apply sparingl y and rub gently into the affected area(s) by topical route 2 times per day active Not Available Not Available No t Available cephalexi n 500 mg capsule active Not Available Not Available Not Available Advair Diskus 250 mcg-50 mcg/dose powder for inhalatio n Inhale 1 puff twice a day by inhalati on route as directed for 30 days. 11/03 completed Sample Qty: 1. qd Not Available Not Available Not Available monteluka st 10 mg tablet Take 1 tablet every day by oral route. active Not Available Not Available No t Available mometason e 0.1 % topical ointment active Not Available Not Available Not Available triamcino lone acetonide 0.1 % lotion active Not Available Not Available Not Available fluticaso ne propionat e 50 mcg/actua tion nasal spray,gavin pension [place] 1 spray every day by intranas al route. active Not Available Not Available No t Available Kariva (28) 0.15 mg-0.02 mg (21)/0.01 mg (5) tablet TAKE ONE TABLET BY MOUTH ONE TIME DAILY active Not Available Not Available No t Available Lexapro 10 mg tablet Take 1 tablet every day by oral route. 2016 active Not Available Not Available Not Avai lable meclizine active Not Available Not Areli ilable Not Available Claritin active Not Available Not Avai lable Not Available Singulair active Not Available Not Areli ilable Not Available Glucosami ne active qd Not Available Not Available Not Available Zyrtec active Not Available Not Availa ble Not Available Eneida active Not Available Not Avail able Not Available Green Tea active Not Available Not Areli ilable Not Available Laporte 3 active 1 tab qd Not Available Not Areli ilable Not Available multivita min active qd Not Available Not Available Not Available Calcium 500 + D active Not Available Not Available Not Available [facility] active qd Not Available Not Available Not Available Cinnamon active Not Available Not Avai lable Not Available ProAir HFA 90 mcg/actua tion aerosol inhaler active Not Available Not Available Not Available oregano oil active stopped Not Available Not Available Not Available Vitals Date Recorded Body height Body weight Body mass index (BMI) Heart rate Systolic blood pressure Diastolic blood pressure Provider Name and Address Organization Details Last Updated DateTime 7 162.56 cm 113983. 34 g 50.8 kg/m2 74 /min 128 mm[Hg] 76 mm[Hg] Hollie Ratliff [facility] 7 12:19:59 Date Recorded Body height Body weight Body mass index (BMI) Heart rate Systolic blood pressure Diastolic blood pressure Provider Name and Address Organization Details Last Updated DateTime 3 161.29 cm 622191. 52925 g 41 kg/m2 76 /min 114 mm[Hg] 70 mm[Hg] Hina Castro [facility] 3 14:08:57 Date Recorded Body height Body mass index (BMI) Body weight Heart rate Body temperature Systolic blood pressure Diastolic blood pressure Provider Name and Address Organization Details Last Updated DateTime 4 160.655 cm 42.1 kg/m2 890462. 052700 g 92 /min 98.6 [degF] 122 mm[Hg] 56 mm[Hg] Ady Esparza [facility] 4 15:49:36 Date Recorded Body weight Heart rate Body mass index (BMI) Body height Systolic blood pressure Diastolic blood pressure Provider Name and Address Organization Details Last Updated DateTime 5 779347. 86358 g 87 /min 51.7 kg/m2 160.02 cm 118 mm[Hg] 75 mm[Hg] Chio Calvo [facility] 14:00:25 Social History Question Answer Notes LastModified by Organizat ion Details LastModified Time Tobacco Smoking Status Never Smoker ADINA Suazo, [facility] 07/16/2012 09:28:14 Do You Have An Advance Directive? Yes HCProxy Is Her Santino Bull Alt Is Edda Farmer Information not available 05/05/2009 How Much Tobacco Do You Chew? None 15 Information not available 10/09/2011 What Type Of Diet Are You Following? REGULAR 15 Information not available 10/09/2011 Which Illicit Or Recreational Drugs Have You Used? None 15 Information not available 10/09/2011 Which Of Your Hands Is Dominant? Right Information not available 12/03/2016 Members Of Household 2 Information not available 07/16/2012 [employer] DBA_[email or web address] 1 15 Information not available 10/09/2011 Pap Smear 08/11/2014 Nl, Never Abn Q 3 Yr sjovanovic Information not available 08/16/2014 C/GC Screen 05/05/2009 Neg DBA_PATCH_ 1 15 Information not available 10/09/2011 Cholesterol/HDL Screen 10/01/2015 Chol 176, Trig 49,hdl 66.9,rf 2.63,ldl 99.3 Information not available 10/03/2015 Tetanus/Adacel Vaccine 04/11/2009 Adacel 15 Information not available 10/09/2011 Mammography Screen 11/09/2015 Code 1 Negative Information not available 11/09/2015 Marital Status Single Information not available 10/09/2011 How Many Children Do You Have? 0 15 Information not available 10/09/2011 Are You Sexually Active? Yes Information not available 07/16/2012 How Much Tobacco Do You Smoke? No 15 Information not available 10/09/2011 Sex: Unknown Functional Status Question Answer Note LastModified by Organizat ion Details LastModified Time What is your level of alcohol consumption? 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 Moderate 2-3 x wk gym, cardio, weights bperron Information not available 04/28/2009 Mental Status None recorded. Family History Relationship Description Onset Age of this Age Resolved Age Notes LastModified by Organization Details LastModified Time Father Hypercholest erolemia previo usly record ed as hyperc holest leo Not available 09/07/2015 14:05:41 Father Diabetes mellitus type 2 (previ ously record ed as diabet es) Not available 09/07/2015 14:05:41 Father Hypertensive disorder previo usly record ed as hypert ension Not available 09/07/2015 14:05:41 Mother Hypercholest erolemia previo usly record ed as hyperc holest leo Not available 09/07/2015 14:05:41 Mother Hypertensive disorder previo usly record ed as hypert ension Not available 09/07/2015 14:05:41 Mother Hypertensive disorder 69 Not available 2014 14:05:41 Paternal Grandmother Congestive heart failure previo usly record ed as CHF Not available 09/07/2015 14:05:41 Notes:AUNT +breast CA 60s, G M +colon CA 70s Medical History No medical history recorded. Gynecological History Statement/Question Response History of abnormal pap never 0 Contraception Condom Age at Menarche 14 Last menstrual period 08/01/2015 0 Obstetrics History GPAL:G 0 P 0 0 0 0 Immunizations Vaccine Type Date Status Note Provider Nam e and Address Organization Details Recorded Time Tdap 9 completed Not Available [facility] 10/09/2011 05:39:27 pneumococcal polysaccharide PPV23 4 completed Not Available [facility] 12/12/2019 02:07:59 Influenza, split virus, quadrivalent, preservative 5 completed Not Available [facility] 12/12/2019 02:11:25 Past Encounters Encounter ID Performer Location Encounter Start Date Encounter Closed Date Diagnosis/Indication Diagnosis SNOMED-CT Code Diagnosis ICD10 Code Diagnosis Note [id number] Gaye Glaser MD [facility] [address] [place] [address] [id number] 1 04/18/2006 12:21:32 06/27/2006 03:36:58 [id number] Fernanda rebollar MD [facility] [address] [place] [address] [id number] 1 12/10/2006 10:11:40 12/10/2006 13:03:40 [id number] Mihaela Richardson MD [facility] [address] [address] 1 09/02/2007 14:53:23 09/02/2007 16:13:08 [id number] Lis Carolina NP [facility] [address] [address] 1 02/25/2009 12:33:27 02/25/2009 17:27:50 [id number] Gaye Galser MD [facility] [address] [address] 1 05/05/2009 08:20:39 05/05/2009 09:22:55 [id number] January Knott NP [facility] [address] [id number] 1 08/30/2009 15:13:52 08/30/2009 16:03:07 [id number] January Knott NP [facility] [address] [id number] 1 10/04/2009 12:06:18 10/04/2009 12:45:09 [id number] Gaye Glaser MD [facility] [address] [place] [address] [id number] 1 05/11/2010 10:52:21 05/11/2010 12:23:28 [id number] Mihaela Richardson MD [facility] [address] [id number] 1 04/03/2011 11:19:22 04/03/2011 12:06:34 [id number] Jazmine Yepez NP [facility] [address] [address] 1 04/24/2011 11:28:47 04/24/2011 12:00:51 [id number] Gaye Glaser MD [facility] use [address] [address] 1 06/21/2011 08:53:39 06/21/2011 10:09:49 [id number] REBA Collins [facility] use [address] [address] 1 01/18/2012 12:29:32 01/18/2012 14:06:01 [id number] REBA Lunsford [address] [address] 07/16/2012 09:12:45 07/16/2012 09:53:44 [id number] Gaye Glaser MD [address] [address] 12/08/2012 07:50:22 12/08/2012 07:54:46 [id number] Gaye Glaser MD [address] [address] 07/24/2013 13:56:34 07/24/2013 15:04:04 [id number] KANU Pizano, VANADNA [address] [address] 08/11/2014 15:18:34 08/11/2014 17:01:37 Adult health examination [id number] Full code status. Encouraged patient to discuss medical decisions with Health Care Proxy. Plan colonoscop y at age 52 unless change in symptoms or family history. Baseline mammogram age 35-40. Discussed abstinence , contracept ion and safe sex. Self Breast Examinatio n taught Encourage aerobic exercise 5x/week Discussed importance of healthy/ba lanced diet. Encouraged high fiber, adequate calcium, minimizing caffeine and alcohol. Screening mammography [id number] Specialize d medical examination [id number] Asthma [id number] pt is stable and the pneumvacci ne is recommende d-She left the office prior to receiving the vaccine. Hypercholesterolemia [id number] [place] Nurse [address] [address] 09/08/2014 15:58:05 09/08/2014 16:08:40 Administration of pneumococcal vaccine [id number] KANU Pizano, VANDANA [address] [address] 09/07/2015 13:38:55 09/07/2015 15:09:43 Adult health examination [id number] Z00.00 Full code status. Encouraged patient to discuss medical decisions with Health Care Proxy. Plan colonoscop y at age 52 unless change in symptoms or family history. Baseline mammogram age 35-40. Discussed abstinence , contracept ion and safe sex. Self Breast Examinatio n taught Encourage aerobic exercise 5x/week Discussed importance of healthy/ba lanced diet. Encouraged high fiber, adequate calcium, minimizing caffeine and alcohol. Screening mammography 24 221450 Z12.31 Influenza vaccine needed [id number] 106 Z28.3 Pt presents for influenza vaccinatio n. Patient screened with questions from [id number] Flu protocol. Discussed importance of influenza vaccine due to the patient's risk of contractin g the disease. A handout was offered to enchance understand ing of the effects and side effects of the vaccine. Morbid obesity [id number] E66.01 She is encouraged to be more active, restart her exercise program and eat healthy. She has agreed to this plan of care plus assessing labs. At 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 Chest wall pain [id number] 6 R07.89 The EKG is normal yet due to the obesity would like her to have a stress echocardio gram. She would like to hold off on this test at this time.. [id number] Gaye Glaser MD [address] [address] 12/03/2016 11:54:42 12/03/2016 13:05:10 Adult health examination [id number] Z00.01 Full code status. Encouraged patient to discuss medical decisions with Health Care Proxy. Plan colonoscop y at age 52 unless change in symptoms or family history. Baseline mammogram age 52, unless earlier based on risk factors and discussion with patient. Discussed contracept ion and safe sex. Encouraged aerobic exercise 5x/week Discussed importance of healthy/ba lanced diet. Encouraged high fiber, adequate calcium, minimizing caffeine and alcohol. Malaise and fatigue [id number] R53.83 Will check labs to see if there is a clinical reason for the fatigue. Encouraged aerobic exercise 5x/week. Body mass index 40+ - severely obese 938013550 Z68.43 Depressive disorder 3548 9007 F32.9 Administra tion of viral vaccine 72013406 Z23 Health Concerns Section Related Observation LastModified by Organization Detai ls LastModified Time None Recorded Concern Status LastModified by Organization Details LastModified Time None Recorded Advance Directives Directive Y: Miracle is her Marcelo Bull alt is Edda Darian Payers Insurance Date Sequence Insurance Name Policy Number Policy Collado Covered Member ID Collado Member ID Guarantor Name 08/01/2014 1 [facility]: [place] CHO[facility] ([place]) [id number] Joannejohnny Farmer [id number] Joanne Ml 08/01/2014 1 [facility] (O) Joanne Farmer [id number] Joannejohnny Bull 08/01/2014 1 [facility] PL[facility] (HMO) [id number] Joanne Farmer [id number] Joannejohnny Bull 03/07/2017 1 [facility]: O BLUE DEDUCTIBLE PROGRAM (HMO) [id number] Joanne Farmer [id number] Joanne Ml Notes Date Note Type Note Provider Name and Address Organization Details Recorded Time 07/24/2013 text/html Patient presents today for CPE. Pt states she has been doing weight watchers since December and has lost 50 lbs. sj Hair is getting a little thinner since she lost 50 pounds. Gaye Glaser MD [address] [place] [address], [phone], [facility] 07/24/2013 14:42:14 08/11/2014 text/html pt presents for today CPE. BEHPt states she is doing well.She is not exercising and states she is busy. Emerald Garcia NP null, [facility] 08/12/2014 09:35:47 09/08/2014 text/html Patient presents today for pneumovax. sj Emerald Garcia NP null, [facility] 09/08/2014 16:33:33 09/07/2015 text/html patient presents for her physical mg She is doing well-she is disappointed that she has regained all the weight she lost. She has been having hot flashes -sometimes when she is getting a cold there is a tightness in her chest. Yesterday she felt hot and her face felt flushed and red and had some chest tightness like she was about to have an Asthma attack. That lasted about 20 minutes. Her menses are regular and at times she gets a headache as the menses starts with Excedrin helping. Also has some achiness of the shoulders and arm muscles. This seems to come and go. Emerald Garcia NP [facility], [facility] 09/07/2015 16:52:55 12/03/2016 text/html pt presents in office for cpe exam -CHETNA Glaser MD [address] [place] [address], [phone], [facility] 12/03/2016 12:53:46 OBGyn Episode No OBEpisode recorded.
== END 2025-05-25 13:36 | disposition home or self-care (01) ==
LOC: HO.HBS 12:42
PROVIDERS: PCP Nurse Practitioner Adult Health; Visit Provider Physician Assistant Surgical
DX: E66.01 Morbid (severe) obesity due to excess calories (principal); Z68.42 Body mass index [BMI] 45.0-49.9, adult; Z90.3 Acquired absence of stomach [part of]; Z98.84 Bariatric surgery status
CPT/HCPCS: 99213

== ENCOUNTER 2025-09-01 10:20 | Outpatient (AMB) | payer OTHER, SELFPAY ==
--- NOTE | 2025-09-01 10:32 | MHC.OFFVISWM ---
VS Expanded 09/01/25 10:40 BP 124/59 L Blood Pressure Location Rt brachial Blood Pressure Position Sitting Pulse 81 Pulse Source Pulse Oximeter Temp 97.4 F Temperature Source Temporal Artery Scan Pulse Oximetry 97 Oxygen Delivery Method Room Air Height 5 ft 3 in Weight 250 lb BMI 44.3 Body Fat % 47.4 Body Fat Mass 118.4 Fat Free Mass 131.4 Visceral Fat Rating 160 Body Water % 37.4 Body Water Mass 93.4 Muscle Mass/Score 124.8 Basal Metabolic Rate/Score 1,857 Intake Visit Reasons: OV PO LSG 12/20/20 Allergies No Known Allergies Allergy (Verified 09/01/25 10:39) Medication List - Last Reconciled 09/01/25 by REBA Holcomb albuterol sulfate 90 mcg/actuation 2 puffs inhalation Q4-6H PRN black cohosh 200 mg PO DAILY cetirizine (Zyrtec) 10 mg PO DAILY PRN diphenhydramine HCl (Benadryl) 25 mg PO BEDTIME escitalopram oxalate mg PO escitalopram oxalate 5 mg PO DAILY evening primrose oil 500 mg PO TID glucosamine HCl 500 mg PO DAILY iron,carbonyl-vitamin C 65 mg iron- 125 mg (Vitron-C) 1 tab PO DAILY melatonin mg PO montelukast 10 mg PO DAILY semaglutide (weight loss) (Wegovy) 0.5 mg (0.5 mL) subcut QWEEK HPI Comments Details: This?is a?55?yo F who is s/p LSG 12/20/2020. Weight loss of 14.2lbs since last OV 05/25/2025 Reports watery diarrhea has improved. Occasional nausea. Present meal plan includes: breakfast- coffee or tea, ZP or Pure Protein bar in pieces (8-10am) lunch- fruit or vegetable and lunch meat (2 slices) and cheddar cheese 2oz dinner- 3-4oz protein (chicken, pork, steak or fish) with vegetable and potato or rice (small portion) Options for snacks: protein shake (half scoop), cottage cheese or Gabonese yogurt (with veg or berries if she wants), half a protein bar, string cheese. -using overnight oats for breakfast recently, had tried the emily but says it didn't work ; will have bar in the afternoon and dinner in evening, sometimes will snack on crackers. She recognizes this as stress eating. Exercise routine includes: not great - tries to walk PFSH Medical History History of postoperative nausea Seasonal allergies Cholelithiasis Liver fibrosis Steatosis, liver Abnormal echocardiogram Vitamin D deficiency Vitamin B1 deficiency Vitamin A deficiency Supraventricular tachycardia Sleep apnea with use of continuous positive airway pressure (CPAP) Degenerative joint disease Prediabetes GERD (gastroesophageal reflux disease) Asthma Morbid obesity Surgical History Hx of colonoscopy Hx of cholecystectomy History of sleeve gastrectomy Family History Mother Hypertension COPD (chronic obstructive pulmonary disease) Diverticulitis Father Heart attack Hypertension Diabetes Congestive cardiac failure COPD (chronic obstructive pulmonary disease) Bilateral traumatic amputation of feet Sister No problems noted. Social History Are you a primary urgent care nurse practitioner to a significant other at home: No Do you presently have visiting nurse or other home services: No Alcohol intake: former Comment: pt sleeping Patient Tobacco Use Status: Never used Tobacco service: No Physical Exam Vital Signs: Last Vital Signs Temp 97.4 F 09/01/25 10:40 Pulse 81 09/01/25 10:40 BP 124/59 L 09/01/25 10:40 Pulse Ox 97 09/01/25 10:40 Oxygen Delivery Method Room Air 09/01/25 10:40 BMI result Body Mass Index 44.3 Assessment & Plan Assessment & Plan (1) Morbid obesity: Code(s): E66.01 - Morbid (severe) obesity due to excess calories Category: Medical (2) S/P laparoscopic sleeve gastrectomy: Code(s): Z98.84 - Bariatric surgery status Category: Medical Plan Discussed the importance of a solid meal plan and exercise regimen in weight loss especially with GLP1. Will maintain same dose of Wegovy for now, discussed indications to increase for next round. RTC 6mo, pt will communicate with me via text in between appts.
[2025-09-01 10:40] VITALS: BP 124/59; PULSE 81; TEMP 36.3; O2SAT 97; BMI 44.3
== END 2025-09-01 11:03 | disposition home or self-care (01) ==
LOC: HO.HBS 10:20
PROVIDERS: PCP Nurse Practitioner Adult Health; Visit Provider Physician Assistant Surgical
DX: E66.01 Morbid (severe) obesity due to excess calories (principal); Z98.84 Bariatric surgery status
CPT/HCPCS: 99214